=== PATIENT | female | born 1970 | race Caucasian/White ===

== ENCOUNTER → 2025-05-25 | Outpatient (CLI) | payer OTHER, SELFPAY ==
--- OUTSIDE RECORDS SUMMARY | 2025-05-25 07:23 | XMS RPT_ITS | CCD ---
Author Organization [facility] Care Team Providers Care Chemical Engineering Professor Name Role Phone Brandon GASOLINE PUMP MECHANIC.Radha OLVERA Primary Care Provider Radha Taylor Attending Unavailable Brandon GASOLINE PUMP MECHANIC.Radha OLVERA Primary Care Provider RADHA TAYLOR Primary Care Unavailable KEVIN SALAZAR Referring Unavailable RADHA TAYLOR Primary Care Unavailable KEVIN SALAZAR Attending Unavailable BRANDON, RADHA Primary Care Unavailable KEVIN SALAZAR P Attending Unavailable RADHA TAYLOR Primary Care Unavailable RADHA TAYLOR Referring Unavailable RADHA TAYLOR Referring Unavailable RADHA TAYLOR Primary Care Unavailable RADHA TAYLOR Attending Unavailable RADHA TAYLOR Primary Care Unavailable Allergies Allergy Classification Reported Allergen(s) Allergy Type Date of Onset Reaction(s) Facility (12 sources) Seasonal allergy; Translations: [SEASONAL ALLERGIES] Allergy to substance 3 Other: See Comments [facility] Medications Current Medications Medication Drug Class(es) Dates Sig (Normalized) Sig (Original) fluticasone propionate 0.05 mg/actuat metered dose nasal spray (11 sources) Corticosteroid take 1 spray(s) nasal route once daily fluticasone (FLONASE ALLERGY RELIEF) 50 mcg/actuation nasal spray Use 1 [place] in each nostril once daily. Active Comment on above: Use 1 [place] in each nostril once daily. predniSONE 10 mg oral tablet (1 source) Start: 08-07-2023 End: 08-16-2023 predniSONE (DELTASONE) 10 mg tablet Indications: Poison sid dermatitis Take 4 tabs daily for 3 days, then 2 tabs daily for 3 days, then 1 tab daily for 3 days with food. 21 tablet 0 08/07/2023 08/16/2023 Active Comment on above: Take 4 tabs daily fo r 3 days, then 2 tabs daily for 3 days, then 1 tab daily for 3 days with food. Completed/Discontinued Medications Medication Drug Class(es) Dates Sig (Normalized) Sig (Original) Lidocaine (1 source) Antiarrhythmic, Amide Local Anesthetic Start: 05-12-2025 End: 05-12-2025 X (OR/PROCEDURE) PRN, Starting on Thu05/12/25 at 0746, Until Thu05/12/25 at 0746, Intraprocedure Problems Problem Classification Problem Date Documented Da te Episodic/Chronic Allergic reactions (1 source) Contact dermatitis due to poison sid; Translations: [Allergic contact dermatitis due to plants, except food] 08-07-2023 Episodic Immunizations and screening for infectious disease (9 sources) Patient encounter status; Translations: [Encounter for immunization] 08-07-2023 Episodic Nonmalignant breast conditions (3 sources) Large breast; Translations: [Hypertrophy of breast] Onset: 03-06-2025 03-06-2025 Episodic Other screening for suspected conditions (not mental disorders or infectious disease) (20 sources) Mammography abnormal; Translations: [Other abnormal and inconclusive findings on diagnostic imaging of breast] Onset: 02-24-2025 03-06-2025 Episodic Unclassified (1 source) Patient encounter status 02-02-2025 Unclassified (1 source) Consult Onset: 04-24-2025 Results Test Name Value Interpretation Reference Range Facility [facility] 05-16-2025 [facility] Telephone (RADMN) SONJA BELTRAN ([id number]) 1970 F Date Time Provider Department 05/16/25 ZULEIKA MALLORY RADMN During your visit today, we recorded the following information about you: Allergies As of Date: 05/16/2025 Noted Allergy Reaction SEASONAL ALLERGIES 08/07/2023 14 - Other: See Comments Date Reviewed: 04/24/2025 Reviewed by: Diego Fu LPN - Fully Assessed Reason for Visit: Results [95] Prescriptions as of 05/16/2025 - fluticasone (FLONASE ALLERGY RELIEF) 50 mcg/actuation nasal spray Use 1 [place] in each nostril once daily. Problem List As Of Date: 05/16/2025 (None) Encounter Status:Closed by ZULEIKA MALLORY on 05/16/25 Normal [facility] DIAGNOSTIC RTon 05-12-20 [facility] DIAGNOSTIC RT * * *Final Report* * * * * * SEE BOTTOM OF REPORT FOR ADDENDED TEXT * * * DATE OF EXAM: May 12 2025 7:59AM SSW 06 - [facility] DIAGNOSTIC RT / PROCEDURE REASON: Abnormal mammogram * * * * Physician Interpretation * * * * RESULT: Count includes the [facility] [address] [place] [address] - - - - - - - - - - ADDENDED REPORT - - - - - - - - - - 05/16/2025 at 01:53:51 Addendum: The final pathology results of the patient's ultrasound guided core biopsy demonstrate the following: Site 1 - (right breast) Right Breast, 10:00, Ultrasound-Guided Core Biopsy With Ribbon Clip - 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 This is concordant with the imaging findings. RECOMMENDATION Site 1: Six month follow up LEFT mammogram has been recommended to demonstrate stability of the calcifications and asymmetry as reported on 04/12/2025. The breast imaging nurse navigator will review the results and recommendations with the patient. Follow-up with diagnostic imaging is recommended in 6 months. Interpreting Radiologist: Ismael Cordova M.D. Electronically signed on: 05/16/2025 - - - - - - - - - - ORIGINAL REPORT - - - - - - - - - - #[id number] - [facility] US BIOPSY BREAST RT #[id number] - [facility] DIAGNOSTIC RT HISTORY: 54 year old patient presents for ultrasound guided core biopsy of the lesion located in the right breast at 10 o'clock, 9 cm from the nipple. PATIENT CONSENT: A time out was performed immediately prior to procedure start with the radiology team, correctly identifying the patient name, date of , procedure, anatomy (including marking of site and side), patient position, relevant diagnostic and radiology test results, safety precautions, and procedure-specific equipment needs. The procedure, along with the risks (including, but not limited to, infection and bleeding), benefits, and alternatives, was explained to the patient by the performing physician. The patient agreed to undergo the procedure. Medications and allergies were also reviewed. The radiologist and technologist were present throughout the entire procedure. Correlation is made to exams dated: 11/17/2023 (mammogram), 02/24/2025 (mammogram), 04/12/2025 (mammogram) and 04/12/2025 (ultrasound). Site 1: Lesion in the right breast at 10 o'clock, 9 cm from the nipple. Audible Time Out Time: 0739 hrs Procedure Start Time: 0746 hrs Procedure Stop Time: 0752 hrs An ultrasound-guided biopsy using real-time ultrasound was performed for the concerning lesion located in the right breast at 10 o'clock, 9 cm from the nipple. This was described on the previous ultrasound report. The skin was prepped in the usual manner. Local anesthetic was administered. A skin dany was made. The abnormality was approached from the inferior aspect. A 14 gauge biopsy needle was placed adjacent to the abnormality under ultrasound guidance. Once the needle was documented to be in the correct location, 3 samples were obtained using a spring-loaded biopsy device. A ribbon biopsy marker was then placed under sonographic guidance. A skin closure strip and a sterile dressing were applied to the access site. The specimen was sent to the laboratory for pathological analysis. There were no biopsy complications observed. Post-procedure mammogram: The ribbon biopsy marker is in appropriate position. Post-procedure mammogram density: There are scattered areas of fibroglandular density. IMPRESSION: ULTRASOUND GUIDED BIOPSY Site 1: Ultrasound-guided biopsy of the lesion located in the right breast at 10 o'clock, 9 cm from the nipple with placement of a ribbon biopsy marker. Procedure was successful. Waiting for pathology result. An amendment will be issued to this report when pathology results become available. The ribbon biopsy marker is in appropriate position. Interpreting Radiologist: Ismael Cordova M.D. Electronically signed on: 05/12/2025 Certified Professional Ergonomist: SHELLIE Transcribe Date/Time: May 12 2025 7:16A Dictated by: ISMAEL CORDOVA MD This examination was interpreted and the report reviewed and electronically signed by: ISMAEL CORDOVA MD on May 12 2025 8:09AM EST This document has been addended by: ISMAEL CORDOVA MD on May 16 2025 1:53AM EST [id number] N Normal [facility] US BIOPSY BREAST RTon [facility] US BIOPSY BREAST RT * * *Final Repor t* * * * * * SEE BOTTOM OF REPORT FOR ADDENDED TEXT * * * DATE OF EXAM: May 12 2025 7:58AM SSW 0598 - [facility] US BIOPSY BREAST RT / PROCEDURE REASON: Abnormal mammogram * * * * Physician Interpretation * * * * RESULT: Count includes the [facility] [address] [place] [id number] - - - - - - - - - - ADDENDED REPORT - - - - - - - - - - 05/16/2025 at 01:53:51 Addendum: The final pathology results of the patient's ultrasound guided core biopsy demonstrate the following: Site 1 - (right breast) Right Breast, 10:00, Ultrasound-Guided Core Biopsy With Ribbon Clip - 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 This is concordant with the imaging findings. RECOMMENDATION Site 1: Six month follow up LEFT mammogram has been recommended to demonstrate stability of the calcifications and asymmetry as reported on 04/12/2025. The breast imaging nurse navigator will review the results and recommendations with the patient. Follow-up with diagnostic imaging is recommended in 6 months. Interpreting Radiologist: Ismael Cordova M.D. Electronically signed on: 05/16/2025 - - - - - - - - - - ORIGINAL REPORT - - - - - - - - - - #[id number] - [facility] US BIOPSY BREAST RT #[id number] - [facility] DIAGNOSTIC RT HISTORY: 54 year old patient presents for ultrasound guided core biopsy of the lesion located in the right breast at 10 o'clock, 9 cm from the nipple. PATIENT CONSENT: A time out was performed immediately prior to procedure start with the radiology team, correctly identifying the patient name, date of , procedure, anatomy (including marking of site and side), patient position, relevant diagnostic and radiology test results, safety precautions, and procedure-specific equipment needs. The procedure, along with the risks (including, but not limited to, infection and bleeding), benefits, and alternatives, was explained to the patient by the performing physician. The patient agreed to undergo the procedure. Medications and allergies were also reviewed. The radiologist and technologist were present throughout the entire procedure. Correlation is made to exams dated: 11/17/2023 (mammogram), 02/24/2025 (mammogram), 04/12/2025 (mammogram) and 04/12/2025 (ultrasound). Site 1: Lesion in the right breast at 10 o'clock, 9 cm from the nipple. Audible Time Out Time: 0739 hrs Procedure Start Time: 0746 hrs Procedure Stop Time: 0752 hrs An ultrasound-guided biopsy using real-time ultrasound was performed for the concerning lesion located in the right breast at 10 o'clock, 9 cm from the nipple. This was described on the previous ultrasound report. The skin was prepped in the usual manner. Local anesthetic was administered. A skin dany was made. The abnormality was approached from the inferior aspect. A 14 gauge biopsy needle was placed adjacent to the abnormality under ultrasound guidance. Once the needle was documented to be in the correct location, 3 samples were obtained using a spring-loaded biopsy device. A ribbon biopsy marker was then placed under sonographic guidance. A skin closure strip and a sterile dressing were applied to the access site. The specimen was sent to the laboratory for pathological analysis. There were no biopsy complications observed. Post-procedure mammogram: The ribbon biopsy marker is in appropriate position. Post-procedure mammogram density: There are scattered areas of fibroglandular density. IMPRESSION: ULTRASOUND GUIDED BIOPSY Site 1: Ultrasound-guided biopsy of the lesion located in the right breast at 10 o'clock, 9 cm from the nipple with placement of a ribbon biopsy marker. Procedure was successful. Waiting for pathology result. An amendment will be issued to this report when pathology results become available. The ribbon biopsy marker is in appropriate position. Interpreting Radiologist: Ismael Cordova M.D. Electronically signed on: 05/12/2025 Certified Professional Ergonomist: SHELLIE Transcribe Date/Time: May 12 2025 7:15A Dictated by: ISMAEL CORDOVA MD This examination was interpreted and the report reviewed and electronically signed by: ISMAEL CORDOVA MD on May 12 2025 8:09AM EST This document has been addended by: ISMAEL CORDOVA MD on May 16 2025 1:53AM EST [id number] N Normal [facility] MG Breast - right Diagnostic for implanton 05-12-2025 IMPRESSION: ULTRASOUND GUIDED BIOPSY Site 1: Ultrasound-guided biopsy of the lesion located in the right breast at 10 o'clock, 9 cm from the nipple with placement of a ribbon biopsy marker. Procedure was successful. Waiting for pathology result. An amendment will be issued to this report when pathology results become available. The ribbon biopsy marker is in appropriate position. Interpreting Radiologist: Ismael Cordova M.D. Electronically signed on: 05/12/2025 Certified Professional Ergonomist: SHELLIE Transcribe Date/Time: May 12 2025 7:16A Dictated by: ISMAEL CORDOVA MD This examination was interpreted and the report reviewed and electronically signed by: ISMAEL CORDOVA MD on May 12 2025 8:09AM EST DIVISION OF RADIOLOGY * * *Final Report* * * DATE OF EXAM: May 12 2025 7:59AM [facility] 0626 - [facility] DIAGNOSTIC RT / PROCEDURE REASON: Abnormal mammogram * * * * Physician Interpretation * * * * RESULT: Count includes the [facility] [address] [place] [address] #[id number] - [facility] US BIOPSY BREAST RT #[id number] - [facility] DIAGNOSTIC RT HISTORY: 54 year old patient presents for ultrasound guided core biopsy of the lesion located in the right breast at 10 o'clock, 9 cm from the nipple. PATIENT CONSENT: A time out was performed immediately prior to procedure start with the radiology team, correctly identifying the patient name, date of , procedure, anatomy (including marking of site and side), patient position, relevant diagnostic and radiology test results, safety precautions, and procedure-specific equipment needs. The procedure, along with the risks (including, but not limited to, infection and bleeding), benefits, and alternatives, was explained to the patient by the performing physician. The patient agreed to undergo the procedure. Medications and allergies were also reviewed. The radiologist and technologist were present throughout the entire procedure. Correlation is made to exams dated: 11/17/2023 (mammogram), 02/24/2025 (mammogram), 04/12/2025 (mammogram) and 04/12/2025 (ultrasound). Site 1: Lesion in the right breast at 10 o'clock, 9 cm from the nipple. Audible Time Out Time: 0739 hrs Procedure Start Time: 0746 hrs Procedure Stop Time: 0752 hrs An ultrasound-guided biopsy using real-time ultrasound was performed for the concerning lesion located in the right breast at 10 o'clock, 9 cm from the nipple. This was described on the previous ultrasound report. The skin was prepped in the usual manner. Local anesthetic was administered. A skin dany was made. The abnormality was approached from the inferior aspect. A 14 gauge biopsy needle was placed adjacent to the abnormality under ultrasound guidance. Once the needle was documented to be in the correct location, 3 samples were obtained using a spring-loaded biopsy device. A ribbon biopsy marker was then placed under sonographic guidance. A skin closure strip and a sterile dressing were applied to the access site. The specimen was sent to the laboratory for pathological analysis. There were no biopsy complications observed. Post-procedure mammogram: The ribbon biopsy marker is in appropriate position. Post-procedure mammogram density: There are scattered areas of fibroglandular density. DIVISION OF RADIOLOGY Provider, [facility] - 05/12/2025 * * *Final Report* * * DATE OF EXAM: May 12 2025 7:59AM [facility] 0626 - [facility] DIAGNOSTIC RT / PROCEDURE REASON: Abnormal mammogram * * * * Physician Interpretation * * * * RESULT: Count includes the [facility] [address] [place] [address] #[id number] - [facility] US BIOPSY BREAST RT #[id number] - [facility] DIAGNOSTIC RT HISTORY: 54 year old patient presents for ultrasound guided core biopsy of the lesion located in the right breast at 10 o'clock, 9 cm from the nipple. PATIENT CONSENT: A time out was performed immediately prior to procedure start with the radiology team, correctly identifying the patient name, date of , procedure, anatomy (including marking of site and side), patient position, relevant diagnostic and radiology test results, safety precautions, and procedure-specific equipment needs. The procedure, along with the risks (including, but not limited to, infection and bleeding), benefits, and alternatives, was explained to the patient by the performing physician. The patient agreed to undergo the procedure. Medications and allergies were also reviewed. The radiologist and technologist were present throughout the entire procedure. Correlation is made to exams dated: 11/17/2023 (mammogram), 02/24/2025 (mammogram), 04/12/2025 (mammogram) and 04/12/2025 (ultrasound). Site 1: Lesion in the right breast at 10 o'clock, 9 cm from the nipple. Audible Time Out Time: 0739 hrs Procedure Start Time: 0746 hrs Procedure Stop Time: 0752 hrs An ultrasound-guided biopsy using real-time ultrasound was performed for the concerning lesion located in the right breast at 10 o'clock, 9 cm from the nipple. This was described on the previous ultrasound report. The skin was prepped in the usual manner. Local anesthetic was administered. A skin dany was made. The abnormality was approached from the inferior aspect. A 14 gauge biopsy needle was placed adjacent to the abnormality under ultrasound guidance. Once the needle was documented to be in the correct location, 3 samples were obtained using a spring-loaded biopsy device. A ribbon biopsy marker was then placed under sonographic guidance. A skin closure strip and a sterile dressing were applied to the access site. The specimen was sent to the laboratory for pathological analysis. There were no biopsy complications observed. Post-procedure mammogram: The ribbon biopsy marker is in appropriate position. Post-procedure mammogram density: There are scattered areas of fibroglandular density. IMPRESSION IMPRESSION: ULTRASOUND GUIDED BIOPSY Site 1: Ultrasound-guided biopsy of the lesion located in the right breast at 10 o'clock, 9 cm from the nipple with placement of a ribbon biopsy marker. Procedure was successful. Waiting for pathology result. An amendment will be issued to this report when pathology results become available. The ribbon biopsy marker is in appropriate position. Interpreting Radiologist: Ismael Cordova M.D. Electronically signed on: 05/12/2025 Certified Professional Ergonomist: SHELLIE Transcribe Date/Time: May 12 2025 7:16A Dictated by: ISMAEL CORDOVA MD This examination was interpreted and the report reviewed and electronically signed by: ISMAEL CORDOVA MD on May 12 2025 8:09AM EST [facility] Radiology Study observation (narrative) [facility] No Panel InformationOrdered By: Ccf Provider on 05-12-2025 [facility] Pathology biopsy report Tevin (Tiss)on 05-12-[address] [facility] Comment on above: Order Comment: Speci men Type: TISSUE SPECIMENOrdering Facility: [facility] Address: [address] [place] [address] Result Comment: Denny garcia Developed Test (LDT) Disclaimer: Performance characteristics of immunohistochemical, immunofluorescent, and chromogenic in-situ hybridization tests have been determined by the performing laboratory within [facility]'s [facility] Pathology and Laboratory Medicine Department ([facility], [facility], [facility], [facility], [facility], [facility], or [facility]) in a manner consistent with CLIA requirements. One or more of these tests may not have been cleared or approved by the FDA. RT-PLM is regulated under CLIA as qualified to perform high-complexity testing. These tests are used for clinical purposes. These should not be regarded as investigational or for research. Positive and negative controls stain appropriately. Performed By: #### 6 6121-5 ####[facility] LABCLIA [id number] [place] [address] [place] CASE REPORT Normal [facility] Comment on above: Order Comment: Speci men Type: TISSUE SPECIMENOrdering Facility: [facility] Address: [address] [place] [address] Result Comment: Surg ica Pathology Report Case: [id number] Authorizing Provider: Ismael Cordova MD Collected: 05/12/2025 07:48 AM Ordering Location: Mammography Received: 05/12/2025 08:56 AM Pathologist: Etienne Canseco MD Specimen: Breast, Right, Core Biopsy, 1.1cm mass 10:000 9 cmfn Ribbon clip, Rt Breast US Core Bx Performed By: #### 6 6121-5 ####[facility] LABCLIA [id number] [place] [id number] [place] FINAL DIAGNOSIS Normal [facility] Comment on above: Order Comment: Speci men Type: TISSUE SPECIMENOrdering Facility: [facility] Address: [address] [place] [address] Result Comment: Righ t breast, 10:00, ultrasound-guided core biopsy with ribbon clip - Benign breast tissue with pseudoangiomatous stromal hyperplasia (PASH) and clustered microcysts. JOSE ANGEL/jose angel/05/15/25 at 1429 EDT Performed By: #### 6 6121-5 ####[facility] LABCLIA [id number] [place] [id number] [place] FINAL PERFORMING LAB Normal [facility] Comment on above: Order Comment: Speci men Type: TISSUE SPECIMENOrdering Facility: [facility] Address: [address] [place] [address] Result Comment: Diag nostic interpretation performed at: [facility], [address] [place] [address] CLIA# [id number] Experimental Rocket Sled Mechanic: Pawan Turner MD Performed By: #### 6 6121-5 ####[facility] LABCLIA [id number] [place] [id number] [place] GROSS DESCRIPTION Normal [facility] Comment on above: Order Comment: Speci men Type: TISSUE SPECIMENOrdering Facility: [facility] Address: [address] [place] [address] Result Comment: A. B reast, Right, Core Biopsy Received in formalin labeled as right breast are multiple segments of cylindrical tissue aggregating to 1.5 x 0.3 x 0.2 cm, yellow-white and of a soft consistency. The specimen was removed from the patient at 7: 48 on 05/12/2025. On the same day, the specimen was placed in formalin at 7: 52. Totally submitted in formalin in one cassette. VY May 12, 2025 5:01 PM Gross examination performed at [facility], [address] [place] [address] Performed By: #### 6 6121-5 ####[facility] LABCLIA [id number] [place] [address] [place] US Guidance for biopsy of Br neli sher 05-12-2025 IMPRESSION: ULTRASOUND GUIDED BIOPSY Site 1: Ultrasound-guided biopsy of the lesion located in the right breast at 10 o'clock, 9 cm from the nipple with placement of a ribbon biopsy marker. Procedure was successful. Waiting for pathology result. An amendment will be issued to this report when pathology results become available. The ribbon biopsy marker is in appropriate position. Interpreting Radiologist: Ismael Cordova M.D. Electronically signed on: 05/12/2025 Certified Professional Ergonomist: SHELLIE Transcribe Date/Time: May 12 2025 7:15A Dictated by: ISMAEL CORDOVA MD This examination was interpreted and the report reviewed and electronically signed by: ISMAEL CORDOVA MD on May 12 2025 8:09AM [facility] DIVISION OF RADIOLOGY * * *Final Report* * * DATE OF EXAM: May 12 2025 7:58AM [facility] 0598 - [facility] US BIOPSY BREAST RT / PROCEDURE REASON: Abnormal mammogram * * * * Physician Interpretation * * * * RESULT: Count includes the [facility] [address] [place] [address] #[id number] - [facility] US BIOPSY BREAST RT #[id number] - [facility] DIAGNOSTIC RT HISTORY: 54 year old patient presents for ultrasound guided core biopsy of the lesion located in the right breast at 10 o'clock, 9 cm from the nipple. PATIENT CONSENT: A time out was performed immediately prior to procedure start with the radiology team, correctly identifying the patient name, date of , procedure, anatomy (including marking of site and side), patient position, relevant diagnostic and radiology test results, safety precautions, and procedure-specific equipment needs. The procedure, along with the risks (including, but not limited to, infection and bleeding), benefits, and alternatives, was explained to the patient by the performing physician. The patient agreed to undergo the procedure. Medications and allergies were also reviewed. The radiologist and technologist were present throughout the entire procedure. Correlation is made to exams dated: 11/17/2023 (mammogram), 02/24/2025 (mammogram), 04/12/2025 (mammogram) and 04/12/2025 (ultrasound). Site 1: Lesion in the right breast at 10 o'clock, 9 cm from the nipple. Audible Time Out Time: 0739 hrs Procedure Start Time: 0746 hrs Procedure Stop Time: 0752 hrs An ultrasound-guided biopsy using real-time ultrasound was performed for the concerning lesion located in the right breast at 10 o'clock, 9 cm from the nipple. This was described on the previous ultrasound report. The skin was prepped in the usual manner. Local anesthetic was administered. A skin dany was made. The abnormality was approached from the inferior aspect. A 14 gauge biopsy needle was placed adjacent to the abnormality under ultrasound guidance. Once the needle was documented to be in the correct location, 3 samples were obtained using a spring-loaded biopsy device. A ribbon biopsy marker was then placed under sonographic guidance. A skin closure strip and a sterile dressing were applied to the access site. The specimen was sent to the laboratory for pathological analysis. There were no biopsy complications observed. Post-procedure mammogram: The ribbon biopsy marker is in appropriate position. Post-procedure mammogram density: There are scattered areas of fibroglandular density. DIVISION OF RADIOLOGY Provider, [facility] - 05/12/2025 * * *Final Report* * * DATE OF EXAM: May 12 2025 7:58AM [facility] 0598 - [facility] US BIOPSY BREAST RT / PROCEDURE REASON: Abnormal mammogram * * * * Physician Interpretation * * * * RESULT: Count includes the [facility] [address] [place] [address] #[id number] - [facility] US BIOPSY BREAST RT #[id number] - [facility] DIAGNOSTIC RT HISTORY: 54 year old patient presents for ultrasound guided core biopsy of the lesion located in the right breast at 10 o'clock, 9 cm from the nipple. PATIENT CONSENT: A time out was performed immediately prior to procedure start with the radiology team, correctly identifying the patient name, date of , procedure, anatomy (including marking of site and side), patient position, relevant diagnostic and radiology test results, safety precautions, and procedure-specific equipment needs. The procedure, along with the risks (including, but not limited to, infection and bleeding), benefits, and alternatives, was explained to the patient by the performing physician. The patient agreed to undergo the procedure. Medications and allergies were also reviewed. The radiologist and technologist were present throughout the entire procedure. Correlation is made to exams dated: 11/17/2023 (mammogram), 02/24/2025 (mammogram), 04/12/2025 (mammogram) and 04/12/2025 (ultrasound). Site 1: Lesion in the right breast at 10 o'clock, 9 cm from the nipple. Audible Time Out Time: 0739 hrs Procedure Start Time: 0746 hrs Procedure Stop Time: 0752 hrs An ultrasound-guided biopsy using real-time ultrasound was performed for the concerning lesion located in the right breast at 10 o'clock, 9 cm from the nipple. This was described on the previous ultrasound report. The skin was prepped in the usual manner. Local anesthetic was administered. A skin dany was made. The abnormality was approached from the inferior aspect. A 14 gauge biopsy needle was placed adjacent to the abnormality under ultrasound guidance. Once the needle was documented to be in the correct location, 3 samples were obtained using a spring-loaded biopsy device. A ribbon biopsy marker was then placed under sonographic guidance. A skin closure strip and a sterile dressing were applied to the access site. The specimen was sent to the laboratory for pathological analysis. There were no biopsy complications observed. Post-procedure mammogram: The ribbon biopsy marker is in appropriate position. Post-procedure mammogram density: There are scattered areas of fibroglandular density. IMPRESSION IMPRESSION: ULTRASOUND GUIDED BIOPSY Site 1: Ultrasound-guided biopsy of the lesion located in the right breast at 10 o'clock, 9 cm from the nipple with placement of a ribbon biopsy marker. Procedure was successful. Waiting for pathology result. An amendment will be issued to this report when pathology results become available. The ribbon biopsy marker is in appropriate position. Interpreting Radiologist: Ismael Cordova M.D. Electronically signed on: 05/12/2025 Certified Professional Ergonomist: SHELLIE Transcribe Date/Time: May 12 2025 7:15A Dictated by: ISMAEL CORDOVA MD This examination was interpreted and the report reviewed and electronically signed by: ISMAEL CORDOVA MD on May 12 2025 8:09AM [facility] Radiology Study observation (narrative) [facility] 05-02-2025 CNOV Office Visit (GENSWS ) SONJA BELTRAN ([id number]) 1970 F Date Time Provider Department 05/02/25 8:30 AM KEVIN SALAZAR During your visit today, we recorded the following information about you: Kevin Salazar MD 05/02/2025 8:52 AM Signed Unable to see the lesion. I am going to have to get her scheduled with interventional radiology. No charge for today's visit Allergies As of Date: 05/02/2025 Noted Allergy Reaction SEASONAL ALLERGIES 08/07/2023 14 - Other: See Comments Date Reviewed: 04/24/2025 Reviewed by: Diego Fu LPN - Fully Assessed Primary Visit Diagnosis:Abnormal mammogram [R92.8] Order(s):US BREAST BIOPSY RIGHT (POC) SURG USE ONLY [[id number]] Order #: [id number]: 1 US BIOPSY BREAST RIGHT [[id number]] Order #: [id number] FUTURE Prescriptions as of 05/02/2025 - fluticasone (FLONASE ALLERGY RELIEF) 50 mcg/actuation nasal spray Use 1 [place] in each nostril once daily. Problem List As Of Date: 05/02/2025 (None) Encounter Status:Closed by KEVIN SALAZAR on 05/02/25 [facility] CNOVon 04-24-2025 CNOV Office Visit (GENSWS ) DEVINBINGSONJA ([id number]) 1970 F Date Time Provider Department 04/24/25 2:00 PM KEVIN SALAZAR During your visit today, we recorded the following information about you: Temperature Pulse Respiration Blood pressure 97.7 degrees 88/minute 12/minute 160/104 Weight Height 112.9 kg 1.702 m Diego FuCOURTNEY 05/07/2025 12:01 PM Signed REVIEW OF SYSTEMS: General: The patient denies fatigue, denies weight loss, denies weight gain, denies feeling hot, and denies feelings of cold. Eyes: The patient denies glaucoma, denies eye injury/surgery, wears glasses or contacts. Ear/Nose/Throat: The patient denies allergies, denies hayfever, denies ear infections, and denies bloody noses. Cardiovascular: The patient denies chest pain, denies heart disease, denies high blood pressure,denies cardiac stent, denies prior heart attack, denies irregular heart beat, denies high cholesterol, denies poor circulation, denies heart failure, other cardiac issues, denies claudication, denies cold feet, denies peripheral arterial stent. Respiratory: The patient denies tuberculosis, denies pneumonia, denies frequent cough, denies pulmonary embolism, denies shortness of breath, and denies coughing up blood. Gastrointestinal: The patient denies difficulty swallowing, denies acid reflux, denies ulcers, denies vomiting, denies jaundice/hepatitis, denies gallbladder problems, denies black or tarry stools, denies hemorrhoids, denies bleeding from rectum, denies diverticulitis, denies constipation, denies diarrhea, denies loss of stool control, and denies hernias. Kidney/Bladder: The patient denies kidney stones, denies urine infections, and denies bloody urine. Skin: The patient denies a history of skin cancer, denies bleeding/changing moles, and denies a history of skin rash. Neurologic: The patient denies a history of epilepsy/convulsions, denies headaches, denies head/spinal injuries, and denies stroke/TIA. Psychiatric: The patient denies psychiatric medications, denies depression, and denies voices, denies substance abuse. Endocrine: The patient denies thyroid disorders, denies diabetes, and denies hormonal problems. Hematologic: The patient denies a history of bruising, denies bleeding, and denies anemia, denies blood clots. Infections: The patient denies a history of measles and mumps, denies rheumatic fever, and denies sexually transmitted diseases. Musculoskeletal: The patient denies back pain/injury, denies back problems, denies sciatica, denies knee/foot trouble, denies arthritis, or denies gout. When was patient's last Mammogram screening? 04/13/2025 Last Colonoscopy: N/A COURTNEY Kaur Daniel P, MD 05/07/2025 12:01 PM Signed HISTORY AND PHYSICAL - BREAST COMPLAINT Sonja Beltran 1970 REFERRING PHYSICIAN: No ref. provider found CHIEF COMPLAINT: Abnormal mammogram (primary encounter diagnosis) HPI: The patient is a 54 year old female with a complaint of an abnormal mammogram. The patient had a mammogram with ultrasound on 04/12/25 which demonstrated : IMPRESSION: Finding 1: Lesion in the right breast at 10 o'clock, 9 cm from the nipple is suspicious for malignancy. Ultrasound-guided biopsy is recommended. Finding 2: Calcifications in the upper outer quadrant of the left breast, middle depth are probably benign. A follow-up in 6 months is recommended. Finding 3: The asymmetry in the upper outer quadrant of the left breast, posterior depth is probably benign. This likely represents fibroglandular tissue. A follow-up mammogram in 6 months is recommended. The patient denies a history of breast masses. She does perform a self breast exam routinely. She notes no skin changes. She denies nipple discharge. She notes no axillary masses. She notes no family history of breast problems. She notes no significant breast trauma or breast difficulties in the past. PAST MEDICAL HISTORY Diagnosis Date Seasonal allergies Status post bilateral LASIK surgery 1994 PAST SURGICAL HISTORY Procedure Laterality Date KNEE LEFT OP SURGERY Left LAPS TX ECTOPIC PREG W/SALPINGAND/OOPHOREC ISAIAS Had one fallopian tube Current Outpatient Medications Medication Sig Dispense Refill fluticasone (FLONASE ALLERGY RELIEF) 50 mcg/actuation nasal spray Use 1 [place] in each nostril once daily. No current facility-administered medications for this visit. ALLERGIES: Seasonal Allergies PERSONAL HISTORY: Social History Tobacco Use Smoking status: Never Smokeless tobacco: Never Vaping Use Vaping status: Never Used Substance Use Topics Alcohol use: Yes Comment: once a month Drug use: Never FAMILY HISTORY: FAMILY HISTORY Problem Relation Age of Onset Osteoporosis Mother other (spinal stenosis) Mother Melanoma Father other (enlarged prostate) Fat (more content not included)... Normal [facility] DBT Breast - bilateral diagn ostic for implanton 04-12-2025 IMPRESSION: Finding 1: Lesion in the right breast at 10 o'clock, 9 cm from the nipple is suspicious for malignancy. Ultrasound-guided biopsy is recommended. Finding 2: Calcifications in the upper outer quadrant of the left breast, middle depth are probably benign. A follow-up in 6 months is recommended. Finding 3: The asymmetry in the upper outer quadrant of the left breast, posterior depth is probably benign. This likely represents fibroglandular tissue. A follow-up mammogram in 6 months is recommended. BI-RADS Category 4A: Suspicious - Low suspicion for malignancy RISK: Based on the Tyrer-Cuzick (TC) risk assessment model, this patient has a 9.5% lifetime risk of developing breast cancer, meaning they are at average risk for developing breast cancer. However, this is only an estimate based on available history provided on the patient's questionnaire. We encourage all patients to talk with their providers about these results, further recommendations for managing breast health, and appropriate supplemental screening options if the patient has dense breast tissue. Interpreting Radiologist: Kevin Dai M.D. Electronically signed on: 04/12/2025 Certified Professional Ergonomist: SHELLIE Transcribe Date/Time: Apr 12 2025 9:32A Dictated by: KEVIN DAI MD This examination was interpreted and the report reviewed and electronically signed by: KEVIN DAI MD on Apr 12 2025 11:57AM [facility] DIVISION OF RADIOLOGY * * *Final Report* * * DATE OF EXAM: Apr 12 2025 10:15AM [facility] 0627 - YEE KLARISSA MORSE / PROCEDURE REASON: Abnormal mammogram * * * * Physician Interpretation * * * * RESULT: [place] [address] [place] [id number] #[id number] - YEE KLARISSA Pretty ANUSHKA LITO #[id number] - [facility] BREAST LTD RT #[id number] - [facility] BREAST [facility] LT HISTORY: 54 year-old patient seen for diagnostic evaluation of the finding(s) described on prior mammogram in both breasts. Patient states no personal history of breast cancer. The patient has a family history of breast cancer. COMPARISON STUDIES: The present examination has been compared to prior imaging studies dated 11/17/2023 (mammogram) and 02/24/2025 (mammogram). MAMMOGRAM TECHNIQUE: The study was acquired using full field digital technology and interpreted from soft copy. Digital Breast Tomosynthesis (DBT) images were obtained and used to assist in the interpretation of this examination. MAMMOGRAM FINDINGS: There are scattered areas of fibroglandular density. Finding 1: There is a focal asymmetry in the upper outer quadrant of the right breast, middle depth. Finding 2: There are grouped punctate calcifications in the upper outer quadrant of the left breast, middle depth. Finding 3: There is an asymmetry in the upper outer quadrant of the left breast, posterior depth. This likely represents fibroglandular tissue. No correlate is identified on same-day ultrasound. Short-term interval follow-up mammogram recommended. ULTRASOUND TECHNIQUE: Targeted ultrasound of the indicated area was performed. Acosta scale images were saved. ULTRASOUND FINDINGS: Finding 1: Ultrasound demonstrates an oval lesion with lobulated margins in the right breast at 10 o'clock, 9 cm from the nipple. This measures 1.1 x 0.5 x 0.9 cm. Internal echotexture is hypoechoic. Color flow imaging demonstrates vascularity is not present. In the left breast, there is no evidence of any solid mass or other abnormality. DIVISION OF RADIOLOGY Provider, [facility] - 04/12/2025 * * *Final Report* * * DATE OF EXAM: Apr 12 2025 10:15AM W 0627 - [facility] KLARISSA Pretty ANUSHKA LITO / PROCEDURE REASON: Abnormal mammogram * * * * Physician Interpretation * * * * RESULT: [facility] [address] [id number] #[id number] - [facility] KLARISSA REVELES LITO #[id number] - [facility] BREAST LTD RT #[id number] - [facility] BREAST [facility] LT HISTORY: 54 year-old patient seen for diagnostic evaluation of the finding(s) described on prior mammogram in both breasts. Patient states no personal history of breast cancer. The patient has a family history of breast cancer. COMPARISON STUDIES: The present examination has been compared to prior imaging studies dated 11/17/2023 (mammogram) and 02/24/2025 (mammogram). MAMMOGRAM TECHNIQUE: The study was acquired using full field digital technology and interpreted from soft copy. Digital Breast Tomosynthesis (DBT) images were obtained and used to assist in the interpretation of this examination. MAMMOGRAM FINDINGS: There are scattered areas of fibroglandular density. Finding 1: There is a focal asymmetry in the upper outer quadrant of the right breast, middle depth. Finding 2: There are grouped punctate calcifications in the upper outer quadrant of the left breast, middle depth. Finding 3: There is an asymmetry in the upper outer quadrant of the left breast, posterior depth. This likely represents fibroglandular tissue. No correlate is identified on same-day ultrasound. Short-term interval follow-up mammogram recommended. ULTRASOUND TECHNIQUE: Targeted ultrasound of the indicated area was performed. Acosta scale images were saved. ULTRASOUND FINDINGS: Finding 1: Ultrasound demonstrates an oval lesion with lobulated margins in the right breast at 10 o'clock, 9 cm from the nipple. This measures 1.1 x 0.5 x 0.9 cm. Internal echotexture is hypoechoic. Color flow imaging demonstrates vascularity is not present. In the left breast, there is no evidence of any solid mass or other abnormality. IMPRESSION IMPRESSION: Finding 1: Lesion in the right breast at 10 o'clock, 9 cm from the nipple is suspicious for malignancy. Ultrasound-guided biopsy is recommended. Finding 2: Calcifications in the upper outer quadrant of the left breast, middle depth are probably benign. A follow-up in 6 months is recommended. Finding 3: The asymmetry in the upper outer quadrant of the left breast, posterior depth is probably benign. This likely represents fibroglandular tissue. A follow-up mammogram in 6 months is recommended. BI-RADS Category 4A: Suspicious - Low suspicion for malignancy RISK: Based on the Tyrer-Cuzick (TC) risk assessment model, this patient has a 9.5% lifetime risk of developing breast cancer, meaning they are at average risk for developing breast cancer. However, this is only an estimate based on available history provided on the patient's questionnaire. We encourage all patients to talk with their providers about these results, further recommendations for managing breast health, and appropriate supplemental screening options if the patient has dense breast tissue. Interpreting Radiologist: Kevin Dai M.D. Electronically signed on: 04/12/2025 Certified Professional Ergonomist: SHELLIE Transcribe Date/Time: Apr 12 2025 9:32A Dictated by: KEVIN DAI MD This examination was interpreted and the report reviewed and electronically signed by: KEVIN DAI MD on Apr 12 2025 11:57AM EST [facility] DIAG W ANUSHKA BILon 2024 YEE DIAG W ANUSHKA LITO * * *Final Report* * * DATE OF EXAM: Apr 12 2025 10:15AM [facility] 0627 - [facility] DIAG W ANUSHKA LITO / PROCEDURE REASON: Abnormal mammogram * * * * Physician Interpretation * * * * RESULT: [place] [address] #[id number] - [facility] DIAG W ANUSHKA LITO #[id number] - [facility] BREAST LTD RT #[id number] - [facility] BREAST LTD LT HISTORY: 54 year-old patient seen for diagnostic evaluation of the finding(s) described on prior mammogram in both breasts. Patient states no personal history of breast cancer. The patient has a family history of breast cancer. COMPARISON STUDIES: The present examination has been compared to prior imaging studies dated 11/17/2023 (mammogram) and 02/24/2025 (mammogram). MAMMOGRAM TECHNIQUE: The study was acquired using full field digital technology and interpreted from soft copy. Digital Breast Tomosynthesis (DBT) images were obtained and used to assist in the interpretation of this examination. MAMMOGRAM FINDINGS: There are scattered areas of fibroglandular density. Finding 1: There is a focal asymmetry in the upper outer quadrant of the right breast, middle depth. Finding 2: There are grouped punctate calcifications in the upper outer quadrant of the left breast, middle depth. Finding 3: There is an asymmetry in the upper outer quadrant of the left breast, posterior depth. This likely represents fibroglandular tissue. No correlate is identified on same-day ultrasound. Short-term interval follow-up mammogram recommended. ULTRASOUND TECHNIQUE: Targeted ultrasound of the indicated area was performed. Acosta scale images were saved. ULTRASOUND FINDINGS: Finding 1: Ultrasound demonstrates an oval lesion with lobulated margins in the right breast at 10 o'clock, 9 cm from the nipple. This measures 1.1 x 0.5 x 0.9 cm. Internal echotexture is hypoechoic. Color flow imaging demonstrates vascularity is not present. In the left breast, there is no evidence of any solid mass or other abnormality. IMPRESSION: Finding 1: Lesion in the right breast at 10 o'clock, 9 cm from the nipple is suspicious for malignancy. Ultrasound-guided biopsy is recommended. Finding 2: Calcifications in the upper outer quadrant of the left breast, middle depth are probably benign. A follow-up in 6 months is recommended. Finding 3: The asymmetry in the upper outer quadrant of the left breast, posterior depth is probably benign. This likely represents fibroglandular tissue. A follow-up mammogram in 6 months is recommended. BI-RADS Category 4A: Suspicious - Low suspicion for malignancy RISK: Based on the Tyrer-Cuzick (TC) risk assessment model, this patient has a 9.5% lifetime risk of developing breast cancer, meaning they are at average risk for developing breast cancer. However, this is only an estimate based on available history provided on the patient's questionnaire. We encourage all patients to talk with their providers about these results, further recommendations for managing breast health, and appropriate supplemental screening options if the patient has dense breast tissue. Interpreting Radiologist: Kevin Dai M.D. Electronically signed on: 04/12/2025 Certified Professional Ergonomist: SHELLIE Transcribe Date/Time: Apr 12 2025 9:32A Dictated by: KEVIN DAI MD This examination was interpreted and the report reviewed and electronically signed by: KEVIN DAI MD on Apr 12 2025 11:57AM EST [id number] Normal [facility] US BREAST LTD LTon 04-12 [facility] US BREAST LTD LT * * *Final Report* * * DATE OF EXAM: Apr 12 2025 11:04AM [facility] [id number] - [facility] US BREAST LTD LT / PROCEDURE REASON: Abnormal mammogram * * * * Physician Interpretation * * * * [place] [address] #[id number] - [facility] KLARISSA MORSE #[id number] - [facility] [email or web address] BREAST LTD RT #[id number] - [facility] [email or web address] BREAST LTD LT HISTORY: 54 year-old patient seen for diagnostic evaluation of the finding(s) described on prior mammogram in both breasts. Patient states no personal history of breast cancer. The patient has a family history of breast cancer. COMPARISON STUDIES: The present examination has been compared to prior imaging studies dated 11/17/2023 (mammogram) and 02/24/2025 (mammogram). MAMMOGRAM TECHNIQUE: The study was acquired using full field digital technology and interpreted from soft copy. Digital Breast Tomosynthesis (DBT) images were obtained and used to assist in the interpretation of this examination. MAMMOGRAM FINDINGS: There are scattered areas of fibroglandular density. Finding 1: There is a focal asymmetry in the upper outer quadrant of the right breast, middle depth. Finding 2: There are grouped punctate calcifications in the upper outer quadrant of the left breast, middle depth. Finding 3: There is an asymmetry in the upper outer quadrant of the left breast, posterior depth. This likely represents fibroglandular tissue. No correlate is identified on same-day ultrasound. Short-term interval follow-up mammogram recommended. ULTRASOUND TECHNIQUE: Targeted ultrasound of the indicated area was performed. Acosta scale images were saved. ULTRASOUND FINDINGS: Finding 1: Ultrasound demonstrates an oval lesion with lobulated margins in the right breast at 10 o'clock, 9 cm from the nipple. This measures 1.1 x 0.5 x 0.9 cm. Internal echotexture is hypoechoic. Color flow imaging demonstrates vascularity is not present. In the left breast, there is no evidence of any solid mass or other abnormality. IMPRESSION: Finding 1: Lesion in the right breast at 10 o'clock, 9 cm from the nipple is suspicious for malignancy. Ultrasound-guided biopsy is recommended. Finding 2: Calcifications in the upper outer quadrant of the left breast, middle depth are probably benign. A follow-up in 6 months is recommended. Finding 3: The asymmetry in the upper outer quadrant of the left breast, posterior depth is probably benign. This likely represents fibroglandular tissue. A follow-up mammogram in 6 months is recommended. BI-RADS Category 4A: Suspicious - Low suspicion for malignancy RISK: Based on the Tyrer-Cuzick (TC) risk assessment model, this patient has a 9.5% lifetime risk of developing breast cancer, meaning they are at average risk for developing breast cancer. However, this is only an estimate based on available history provided on the patient's questionnaire. We encourage all patients to talk with their providers about these results, further recommendations for managing breast health, and appropriate supplemental screening options if the patient has dense breast tissue. Interpreting Radiologist: Kevin Dai M.D. Electronically signed on: 04/12/2025 Certified Professional Ergonomist: SHELLIE Transcribe Date/Time: Apr 12 2025 10:59A Dictated by : KEVIN DAI MD This examination was interpreted and the report reviewed and electronically signed by: KEVIN DAI MD on Apr 12 2025 11:57AM EST [id number] N Normal [facility] US BREAST LTD RTon 04-12 [facility] [email or web address] BREAST LTD RT * * *Final Report* * * DATE OF EXAM: Apr 12 2025 10:58AM U 0594 - [facility] [email or web address] BREAST LTD RT / PROCEDURE REASON: Abnormal mammogram * * * * Physician Interpretation * * * * [place] [address] #[id number] - [facility] JUANG W ANUSHKA LITO #[id number] - [facility] US BREAST LTD RT #[id number] - [facility] [email or web address] BREAST LTD LT HISTORY: 54 year-old patient seen for diagnostic evaluation of the finding(s) described on prior mammogram in both breasts. Patient states no personal history of breast cancer. The patient has a family history of breast cancer. COMPARISON STUDIES: The present examination has been compared to prior imaging studies dated 11/17/2023 (mammogram) and 02/24/2025 (mammogram). MAMMOGRAM TECHNIQUE: The study was acquired using full field digital technology and interpreted from soft copy. Digital Breast Tomosynthesis (DBT) images were obtained and used to assist in the interpretation of this examination. MAMMOGRAM FINDINGS: There are scattered areas of fibroglandular density. Finding 1: There is a focal asymmetry in the upper outer quadrant of the right breast, middle depth. Finding 2: There are grouped punctate calcifications in the upper outer quadrant of the left breast, middle depth. Finding 3: There is an asymmetry in the upper outer quadrant of the left breast, posterior depth. This likely represents fibroglandular tissue. No correlate is identified on same-day ultrasound. Short-term interval follow-up mammogram recommended. ULTRASOUND TECHNIQUE: Targeted ultrasound of the indicated area was performed. Acosta scale images were saved. ULTRASOUND FINDINGS: Finding 1: Ultrasound demonstrates an oval lesion with lobulated margins in the right breast at 10 o'clock, 9 cm from the nipple. This measures 1.1 x 0.5 x 0.9 cm. Internal echotexture is hypoechoic. Color flow imaging demonstrates vascularity is not present. In the left breast, there is no evidence of any solid mass or other abnormality. IMPRESSION: Finding 1: Lesion in the right breast at 10 o'clock, 9 cm from the nipple is suspicious for malignancy. Ultrasound-guided biopsy is recommended. Finding 2: Calcifications in the upper outer quadrant of the left breast, middle depth are probably benign. A follow-up in 6 months is recommended. Finding 3: The asymmetry in the upper outer quadrant of the left breast, posterior depth is probably benign. This likely represents fibroglandular tissue. A follow-up mammogram in 6 months is recommended. BI-RADS Category 4A: Suspicious - Low suspicion for malignancy RISK: Based on the Tyrer-Cuzick (TC) risk assessment model, this patient has a 9.5% lifetime risk of developing breast cancer, meaning they are at average risk for developing breast cancer. However, this is only an estimate based on available history provided on the patient's questionnaire. We encourage all patients to talk with their providers about these results, further recommendations for managing breast health, and appropriate supplemental screening options if the patient has dense breast tissue. Interpreting Radiologist: Kevin Dai M.D. Electronically signed on: 04/12/2025 Certified Professional Ergonomist: SHELLIE Transcribe Date/Time: Apr 12 2025 10:52A Dictated by : KEVIN DAI MD This examination was interpreted and the report reviewed and electronically signed by: KEVIN DAI MD on Apr 12 2025 11:57AM EST [id number] N Normal [facility] No Panel InformationOrdered By: [facility] Provider on 04-12-2025 [facility] No Panel Informationon 04-12 Radiology Study observation (narrative) Rowan leon [facility] US Breast - left limitedon 0 04-12-2025 IMPRESSION: Finding 1: Lesion in the right breast at 10 o'clock, 9 cm from the nipple is suspicious for malignancy. Ultrasound-guided biopsy is recommended. Finding 2: Calcifications in the upper outer quadrant of the left breast, middle depth are probably benign. A follow-up in 6 months is recommended. Finding 3: The asymmetry in the upper outer quadrant of the left breast, posterior depth is probably benign. This likely represents fibroglandular tissue. A follow-up mammogram in 6 months is recommended. BI-RADS Category 4A: Suspicious - Low suspicion for malignancy RISK: Based on the Tyrer-Cuzick (TC) risk assessment model, this patient has a 9.5% lifetime risk of developing breast cancer, meaning they are at average risk for developing breast cancer. However, this is only an estimate based on available history provided on the patient's questionnaire. We encourage all patients to talk with their providers about these results, further recommendations for managing breast health, and appropriate supplemental screening options if the patient has dense breast tissue. Interpreting Radiologist: Kevin Dai M.D. Electronically signed on: 04/12/2025 Certified Professional Ergonomist: SHELLIE Transcribe Date/Time: Apr 12 2025 10:59A Dictated by : KEVIN DAI MD This examination was interpreted and the report reviewed and electronically signed by: KEVIN DAI MD on Apr 12 2025 11:57AM EST DIVISION OF RADIOLOGY * * *Final Report* * * DATE OF EXAM: Apr 12 2025 11:04AM [facility] 0593 - [facility] [email or web address] BREAST LTD LT / PROCEDURE REASON: Abnormal mammogram * * * * Physician Interpretation * * * * [place] [address] #[id number] - [facility] DIAG W ANUSHKA LITO #[id number] - [facility] US BREAST LTD RT #[id number] - [facility] US BREAST LTD LT HISTORY: 54 year-old patient seen for diagnostic evaluation of the finding(s) described on prior mammogram in both breasts. Patient states no personal history of breast cancer. The patient has a family history of breast cancer. COMPARISON STUDIES: The present examination has been compared to prior imaging studies dated 11/17/2023 (mammogram) and 02/24/2025 (mammogram). MAMMOGRAM TECHNIQUE: The study was acquired using full field digital technology and interpreted from soft copy. Digital Breast Tomosynthesis (DBT) images were obtained and used to assist in the interpretation of this examination. MAMMOGRAM FINDINGS: There are scattered areas of fibroglandular density. Finding 1: There is a focal asymmetry in the upper outer quadrant of the right breast, middle depth. Finding 2: There are grouped punctate calcifications in the upper outer quadrant of the left breast, middle depth. Finding 3: There is an asymmetry in the upper outer quadrant of the left breast, posterior depth. This likely represents fibroglandular tissue. No correlate is identified on same-day ultrasound. Short-term interval follow-up mammogram recommended. ULTRASOUND TECHNIQUE: Targeted ultrasound of the indicated area was performed. Acosta scale images were saved. ULTRASOUND FINDINGS: Finding 1: Ultrasound demonstrates an oval lesion with lobulated margins in the right breast at 10 o'clock, 9 cm from the nipple. This measures 1.1 x 0.5 x 0.9 cm. Internal echotexture is hypoechoic. Color flow imaging demonstrates vascularity is not present. In the left breast, there is no evidence of any solid mass or other abnormality. DIVISION OF RADIOLOGY Provider, [facility] - 04/12/2025 * * *Final Report* * * DATE OF EXAM: Apr 12 2025 11:04AM WRU 0593 - [facility] BREAST [employer] LT / PROCEDURE REASON: Abnormal mammogram * * * * Physician Interpretation * * * * [place] [address] #[id number] - [facility] KLARISSA W ANUSHKA LITO #[id number] - [facility] [email or web address] BREAST LTD RT #[id number] - [facility] [email or web address] BREAST LTD LT HISTORY: 54 year-old patient seen for diagnostic evaluation of the finding(s) described on prior mammogram in both breasts. Patient states no personal history of breast cancer. The patient has a family history of breast cancer. COMPARISON STUDIES: The present examination has been compared to prior imaging studies dated 11/17/2023 (mammogram) and 02/24/2025 (mammogram). MAMMOGRAM TECHNIQUE: The study was acquired using full field digital technology and interpreted from soft copy. Digital Breast Tomosynthesis (DBT) images were obtained and used to assist in the interpretation of this examination. MAMMOGRAM FINDINGS: There are scattered areas of fibroglandular density. Finding 1: There is a focal asymmetry in the upper outer quadrant of the right breast, middle depth. Finding 2: There are grouped punctate calcifications in the upper outer quadrant of the left breast, middle depth. Finding 3: There is an asymmetry in the upper outer quadrant of the left breast, posterior depth. This likely represents fibroglandular tissue. No correlate is identified on same-day ultrasound. Short-term interval follow-up mammogram recommended. ULTRASOUND TECHNIQUE: Targeted ultrasound of the indicated area was performed. Aocsta scale images were saved. ULTRASOUND FINDINGS: Finding 1: Ultrasound demonstrates an oval lesion with lobulated margins in the right breast at 10 o'clock, 9 cm from the nipple. This measures 1.1 x 0.5 x 0.9 cm. Internal echotexture is hypoechoic. Color flow imaging demonstrates vascularity is not present. In the left breast, there is no evidence of any solid mass or other abnormality. IMPRESSION IMPRESSION: Finding 1: Lesion in the right breast at 10 o'clock, 9 cm from the nipple is suspicious for malignancy. Ultrasound-guided biopsy is recommended. Finding 2: Calcifications in the upper outer quadrant of the left breast, middle depth are probably benign. A follow-up in 6 months is recommended. Finding 3: The asymmetry in the upper outer quadrant of the left breast, posterior depth is probably benign. This likely represents fibroglandular tissue. A follow-up mammogram in 6 months is recommended. BI-RADS Category 4A: Suspicious - Low suspicion for malignancy RISK: Based on the Tyrer-Cuzick (TC) risk assessment model, this patient has a 9.5% lifetime risk of developing breast cancer, meaning they are at average risk for developing breast cancer. However, this is only an estimate based on available history provided on the patient's questionnaire. We encourage all patients to talk with their providers about these results, further recommendations for managing breast health, and appropriate supplemental screening options if the patient has dense breast tissue. Interpreting Radiologist: Kevin Dai M.D. Electronically signed on: 04/12/2025 Certified Professional Ergonomist: SHELLIE Transcribe Date/Time: Apr 12 2025 10:59A Dictated by : KEVIN DAI MD This examination was interpreted and the report reviewed and electronically signed by: KEVIN DAI MD on Apr 12 2025 11:57AM EST [facility] Breast - right limitedon 04-12-2025 IMPRESSION: Finding 1: Lesion in the right breast at 10 o'clock, 9 cm from the nipple is suspicious for malignancy. Ultrasound-guided biopsy is recommended. Finding 2: Calcifications in the upper outer quadrant of the left breast, middle depth are probably benign. A follow-up in 6 months is recommended. Finding 3: The asymmetry in the upper outer quadrant of the left breast, posterior depth is probably benign. This likely represents fibroglandular tissue. A follow-up mammogram in 6 months is recommended. BI-RADS Category 4A: Suspicious - Low suspicion for malignancy RISK: Based on the Tyrer-Cuzick (TC) risk assessment model, this patient has a 9.5% lifetime risk of developing breast cancer, meaning they are at average risk for developing breast cancer. However, this is only an estimate based on available history provided on the patient's questionnaire. We encourage all patients to talk with their providers about these results, further recommendations for managing breast health, and appropriate supplemental screening options if the patient has dense breast tissue. Interpreting Radiologist: Kevin Dai M.D. Electronically signed on: 04/12/2025 Certified Professional Ergonomist: SHELLIE Transcribe Date/Time: Apr 12 2025 10:52A Dictated by : KEVIN DAI MD This examination was interpreted and the report reviewed and electronically signed by: KEVIN DAI MD on Apr 12 2025 11:57AM [facility] DIVISION OF RADIOLOGY * * *Final Report* * * DATE OF EXAM: Apr 12 2025 10:58AM [facility] 0594 - [facility] US BREAST LTD RT / PROCEDURE REASON: Abnormal mammogram * * * * Physician Interpretation * * * * [place] [id number] #[id number] - [facility] KLARISSA REVELES LITO #[id number] - [facility] [email or web address] BREAST [employer] RT #[id number] - [facility] [employer] BREAST [employer] LT HISTORY: 54 year-old patient seen for diagnostic evaluation of the finding(s) described on prior mammogram in both breasts. Patient states no personal history of breast cancer. The patient has a family history of breast cancer. COMPARISON STUDIES: The present examination has been compared to prior imaging studies dated 11/17/2023 (mammogram) and 02/24/2025 (mammogram). MAMMOGRAM TECHNIQUE: The study was acquired using full field digital technology and interpreted from soft copy. Digital Breast Tomosynthesis (DBT) images were obtained and used to assist in the interpretation of this examination. MAMMOGRAM FINDINGS: There are scattered areas of fibroglandular density. Finding 1: There is a focal asymmetry in the upper outer quadrant of the right breast, middle depth. Finding 2: There are grouped punctate calcifications in the upper outer quadrant of the left breast, middle depth. Finding 3: There is an asymmetry in the upper outer quadrant of the left breast, posterior depth. This likely represents fibroglandular tissue. No correlate is identified on same-day ultrasound. Short-term interval follow-up mammogram recommended. ULTRASOUND TECHNIQUE: Targeted ultrasound of the indicated area was performed. Acosta scale images were saved. ULTRASOUND FINDINGS: Finding 1: Ultrasound demonstrates an oval lesion with lobulated margins in the right breast at 10 o'clock, 9 cm from the nipple. This measures 1.1 x 0.5 x 0.9 cm. Internal echotexture is hypoechoic. Color flow imaging demonstrates vascularity is not present. In the left breast, there is no evidence of any solid mass or other abnormality. DIVISION OF RADIOLOGY Provider, [facility] - 04/12/2025 * * *Final Report* * * DATE OF EXAM: Apr 12 2025 10:58AM WRU 0594 - [facility] [email or web address] BREAST [employer] RT / PROCEDURE REASON: Abnormal mammogram * * * * Physician Interpretation * * * * [facility] [address] [place] [address] #[id number] - [facility] KLARISSA REVELES LITO #[id number] - [facility] BREAST LTD RT #[id number] - [facility] BREAST [facility] LT HISTORY: 54 year-old patient seen for diagnostic evaluation of the finding(s) described on prior mammogram in both breasts. Patient states no personal history of breast cancer. The patient has a family history of breast cancer. COMPARISON STUDIES: The present examination has been compared to prior imaging studies dated 11/17/2023 (mammogram) and 02/24/2025 (mammogram). MAMMOGRAM TECHNIQUE: The study was acquired using full field digital technology and interpreted from soft copy. Digital Breast Tomosynthesis (DBT) images were obtained and used to assist in the interpretation of this examination. MAMMOGRAM FINDINGS: There are scattered areas of fibroglandular density. Finding 1: There is a focal asymmetry in the upper outer quadrant of the right breast, middle depth. Finding 2: There are grouped punctate calcifications in the upper outer quadrant of the left breast, middle depth. Finding 3: There is an asymmetry in the upper outer quadrant of the left breast, posterior depth. This likely represents fibroglandular tissue. No correlate is identified on same-day ultrasound. Short-term interval follow-up mammogram recommended. ULTRASOUND TECHNIQUE: Targeted ultrasound of the indicated area was performed. Acosta scale images were saved. ULTRASOUND FINDINGS: Finding 1: Ultrasound demonstrates an oval lesion with lobulated margins in the right breast at 10 o'clock, 9 cm from the nipple. This measures 1.1 x 0.5 x 0.9 cm. Internal echotexture is hypoechoic. Color flow imaging demonstrates vascularity is not present. In the left breast, there is no evidence of any solid mass or other abnormality. IMPRESSION IMPRESSION: Finding 1: Lesion in the right breast at 10 o'clock, 9 cm from the nipple is suspicious for malignancy. Ultrasound-guided biopsy is recommended. Finding 2: Calcifications in the upper outer quadrant of the left breast, middle depth are probably benign. A follow-up in 6 months is recommended. Finding 3: The asymmetry in the upper outer quadrant of the left breast, posterior depth is probably benign. This likely represents fibroglandular tissue. A follow-up mammogram in 6 months is recommended. BI-RADS Category 4A: Suspicious - Low suspicion for malignancy RISK: Based on the Tyrer-Cuzick (TC) risk assessment model, this patient has a 9.5% lifetime risk of developing breast cancer, meaning they are at average risk for developing breast cancer. However, this is only an estimate based on available history provided on the patient's questionnaire. We encourage all patients to talk with their providers about these results, further recommendations for managing breast health, and appropriate supplemental screening options if the patient has dense breast tissue. Interpreting Radiologist: Kevin Dai M.D. Electronically signed on: 04/12/2025 Certified Professional Ergonomist: SHELLIE Transcribe Date/Time: Apr 12 2025 10:52A Dictated by : KEVIN DAI MD This examination was interpreted and the report reviewed and electronically signed by: KEVIN DAI MD on Apr 12 2025 11:57AM EST [facility] CNOVon 03-06-2025 CNOV Office Visit (FAMPWS ) SONJA BELTRAN ([id number]) 1970 F Date Time Provider Department 03/06/25 3:40 PM RADHA TAYLOR During your visit today, we recorded the following information about you: Pulse Blood pressure Weight Height 76/minute 138/90 111.1 kg 1.727 m Radha Taylor APRN.BOTTOM BRUSHER 03/06/2025 3:36 PM Signed Chief Complaint Patient presents with: Results: Discuss Mammogram HPI Sonja Beltran is a 54 year old female who presents here today for Above Complaints. Patient presents for follow up to mammogram. Past medical history, appointments, medications, allergies reviewed. Previous Medical History No past medical history on file. Previous Surgical History PAST SURGICAL HISTORY Procedure Laterality Date KNEE LEFT OP SURGERY Left LAPS TX ECTOPIC PREG W/SALPINGAND/OOPHOREC ISAIAS Had one fallopian tube Family History FAMILY HISTORY Problem Relation Age of Onset Osteoporosis Mother other (spinal stenosis) Mother Melanoma Father other (enlarged prostate) Father Breast Cancer Sister Macular Degen Maternal Grandmother other (myasthenia gravis) Maternal Grandmother Stroke Maternal Grandfather Breast Cancer Paternal Grandmother Patient Allergies ALLERGIES Allergen Reactions Seasonal Allergies Other: See Comments Current Medications Current Outpatient Medications on File Prior to Visit Medication Sig fluticasone (FLONASE ALLERGY RELIEF) 50 mcg/actuation nasal spray Use 1 [place] in each nostril once daily. No current facility-administered medications on file prior to visit. Social History Social History Tobacco Use Smoking status: Never Smokeless tobacco: Never Substance Use Topics Alcohol use: Yes Comment: once a month Drug use: Never Review of Symptoms REVIEW OF SYSTEMS SEE HPI EXAM: BP 138/90 Pulse 76 Ht 172.7 cm (5' 8) Wt 111.1 kg (245 lb) BMI 37.25 kg/m? General Appearance: Well appearing, alert, in no acute distress, well-hydrated, well nourished. Health Maintenance List Depression Screening Never done Anxiety Screening Never done DTaP,Tdap,Td Vaccine(1 - Tdap) Never done Pneumococcal Vaccine: 50+(1 of 1 - PCV) Never done Covid-19 Vaccine() due on 07/17/2024 Cervical Cancer Screening due on 01/12/2026 Mammogram Screening due on 02/24/2026 Colorectal Cancer Screening due on 07/17/2026 Diabetes Screening due on 08/07/2026 Lipid Screening due on 08/07/2028 Influenza Vaccine Completed Shingrix Vaccine Completed Hepatitis B Vaccine Discontinued Hepatitis C Screening Discontinued HIV Screening Discontinued ASSESSMENT/PLAN: 1. Abnormal mammogram - ICD9: 793.80, ICD10: R92.8 (primary diagnosis) - [facility] BILATERAL - US BREAST LTD LEFT 2. Screening for diabetes mellitus - ICD9: V77.1, ICD10: Z13.1 - HEMOGLOBIN A1C 3. Encounter for lipid screening for cardiovascular disease - ICD9: V77.91, V81.2, ICD10: Z13.220, Z13.6 - LIPID PANEL, NONFASTING 4. Wellness examination - ICD9: V70.0, ICD10: Z00.00 - Counseled on healthy diet and regular exercise - Discussed need and benefit for weight loss. BMI 37.25 kg/(m2) - Follow up for annual exam in one year - COMPLETE BLOOD COUNT AND DIFFERENTIAL - COMPREHENSIVE METABOLIC PANEL 5. Large breasts - ICD9: 611.1, ICD10: N62 - CONSULT TO PLASTIC SURGERY Radha Taylor APRN.BOTTOM BRUSHER Allergies As of Date: 03/06/2025 Noted Allergy Reaction SEASONAL ALLERGIES 08/07/2023 14 - Other: See Comments Date Reviewed: 03/06/2025 Reviewed by: Keila Toledo MA - Fully Assessed Reason for Visit: Results [95] Cmt: Discuss Mammogram Primary Visit Diagnosis:Abnormal mammogram [R92.8] Other Visit Diagnoses:Screening for diabetes mellitus [Z13.1] Encounter for lipid screening for cardiovascular disease [Z13.220, Z13.6] Wellness examination [Z00.00] Large breasts [N62] Order(s):YEE DIAGNOSTIC BILATERAL [[id number]] Order #: [id number] FUTURE US BREAST LTD LEFT [8522760] Order #: [id number] FUTURE COMPLETE BLOOD COUNT AND DIFFERENTIAL [SQCBCDIF] Order #: [id number] FUTURE COMPREHENSIVE METABOLIC PANEL [SQCMP] Order #: [id number] FUTURE LIPID PANEL, NONFASTING [SQLIPNF] Order #: [id number] FUTURE HEMOGLOBIN A1C [CBIUK5T] Order #: [id number] FUTURE CONSULT TO PLASTIC SURGERY [9033] Order #: [id number]: 1 FUTURE Prescriptions as of 03/06/2025 - fluticasone (FLONASE ALLERGY RELIEF) 50 mcg/actuation nasal spray Use 1 [place] in each nostril once daily. Problem List As Of Date: 03/06/2025 (None) Disposition: Return in about 4 weeks (around 04/03/2025) for annual physical-40min. Follow-up and Disposition History for Encounter Date Provider Department Center 03/06/2025 [id number] TAYLOR [facility] Encounter Status:Closed by RADHA TAYLOR on 03/06/[address] [facility] YEE SCREENING W TOMOon 02-24 YEE SCREENING W ANUSHKA * * *Final Report* * * DATE OF EXAM: Feb 24 2025 7:22AM WRW [id number] - YEE SCREENING W ANUSHKA / PROCEDURE REASON: Encounter for screening mammogram for breast cancer * * * * Physician Interpretation * * * * RESULT: [address] [address] [place] [address] #[id number] - YEE SCREENING W ANUSHKA HISTORY: 54 year-old patient seen for screening. Patient is asymptomatic in both breasts. Patient states no personal history of breast cancer. The patient has a family history of breast cancer. COMPARISON STUDIES: The present examination has been compared to a prior imaging study dated 11/17/2023 (mammogram). MAMMOGRAM TECHNIQUE: The study was acquired using full field digital technology and interpreted from soft copy. Digital Breast Tomosynthesis (DBT) images were obtained and used to assist in the interpretation of this examination. MAMMOGRAM FINDINGS: There are scattered areas of fibroglandular density. Finding 1: There is an asymmetry seen only in the CC view in the lateral right breast. Finding 2: There is a focal asymmetry in the upper outer quadrant of the left breast, posterior depth. Finding 3: There are multiple groups of calcifications in the upper outer quadrant of the left breast. IMPRESSION: Finding 1: The asymmetry in the lateral right breast requires additional evaluation. Diagnostic mammogram is recommended. Finding 2: The focal asymmetry in the upper outer quadrant of the left breast, posterior depth requires additional evaluation. Diagnostic mammogram is recommended. Finding 3: Calcifications in the upper outer quadrant of the left breast require additional evaluation. Diagnostic mammogram is recommended. BI-RADS Category 0: Incomplete: Needs Additional Imaging Evaluation RISK: Based on the Tyrer-Cuzick (TC) risk assessment model, this patient has a 9.5% lifetime risk of developing breast cancer, meaning they are at average risk for developing breast cancer. However, this is only an estimate based on available history provided on the patient's questionnaire. We encourage all patients to talk with their providers about these results, further recommendations for managing breast health, and appropriate supplemental screening options if the patient has dense breast tissue. Interpreting Radiologist: Jhonatan Marquez M.D. Electronically signed on: 02/25/2025 Certified Professional Ergonomist: SHELLIE Transcribe Date/Time: Feb 24 2025 7:08A Dictated by: JHONATAN MARQUEZ MD This examination was interpreted and the report reviewed and electronically signed by: JHONATAN MARQUEZ MD on Feb 25 2025 10:45AM EST [id number] N Normal [facility] CBC W Auto Differential pane l (Bld)on 08-07-2023 Basophils (Bld) [#/Vol] 0.08 10*3/uL <0.11 k/uL [facility] Basophils/100 WBC (Bld) 1.2 % [facility] Differential cell count method Nom (Bld) Auto [facility] Eosinophils (Bld) [#/Vol] 0.25 10*3/uL <0.46 k/uL [facility] Eosinophils/100 WBC (Bld) 3.6 % [facility] Erythrocyte distribution width (RBC) [Ratio] 13.2 % 11.5 - 15.0 % [facility] Hematocrit (Bld) [Volume fraction] 46.2 % High 36.0 - 46.0 % [facility] Hemoglobin (Bld) [Mass/Vol] 15.0 g/dL 11.5 - 15.5 g/dL [facility] Immature granulocytes (Bld) [#/Vol] <0.10 k/uL [facility] Immature granulocytes/100 WBC (Bld) 0.1 % [facility] Lymphocytes (Bld) [#/Vol] 2.42 10*3/uL 1.00 - 4.00 k/uL [facility] Lymphocytes/100 WBC (Bld) 35.3 % [facility] MCH (RBC) [Entitic mass] 30.1 pg 26.0 - 34.0 pg [facility] MCHC (RBC) [Mass/Vol] 32.5 g/dL 30.5 - 36.0 g/dL [facility] MCV (RBC) [Entitic vol] 92.8 fL 80.0 - 100.0 fL [facility] Monocytes (Bld) [#/Vol] 0.52 10*3/uL <0.87 k/uL [facility] Monocytes/100 WBC (Bld) 7.6 % [facility] Neutrophils (Bld) [#/Vol] 3.58 10*3/uL 1.45 - 7.50 k/uL [facility] Neutrophils/100 WBC (Bld) 52.2 % [facility] Nucleated RBC (Bld) [#/Vol] <0.01 k/uL [facility] Nucleated RBC/100 WBC (Bld) [Ratio] 0.0 /100 WBC [facility] Platelet mean volume (Bld) [Entitic vol] 9.6 fL 9.0 - 12.7 fL [facility] Platelets (Bld) [#/Vol] 304 10*3/uL 150 - 400 k/uL [facility] RBC (Bld) [#/Vol] 4.98 10*6/uL 3.90 - 5.2 0 m/uL [facility] WBC (Bld) [#/Vol] 6.86 10*3/uL 3.70 - 11. 00 k/uL [facility] Comprehensive metabolic 2000 panelon 08-07-2023 Albumin [Mass/Vol] 4.7 g/dL 3.9 - 4.9 g/dL [facility] ALP [Catalytic activity/Vol] 74 U/L 34 - 123 U/L [facility] ALT [Catalytic activity/Vol] 31 U/L 7 - 38 U/L [facility] Anion gap [Moles/Vol] 13 mmol/L 9 - 18 mmol/L [facility] AST [Catalytic activity/Vol] 23 U/L 13 - 35 U/L [facility] Bilirubin [Mass/Vol] 0.8 mg/dL 0.2 - 1 .3 mg/dL [facility] Calcium [Mass/Vol] 9.5 mg/dL 8.5 - 10. 2 mg/dL [facility] Chloride [Moles/Vol] 105 mmol/L 97 - 10 5 mmol/L [facility] CO2 [Moles/Vol] 25 mmol/L 22 - 30 mmol/L [facility] Creatinine [Mass/Vol] 0.89 mg/dL 0.58 - 0.96 mg/dL [facility] Estimated Glomerular Filtration Rate 77 mL/min/1.73m >=60 mL/min/1.73m [facility] Glucose [Mass/Vol] 96 mg/dL 74 - 99 mg/dL [facility] Potassium [Moles/Vol] 4.0 mmol/L 3.7 - 5.1 mmol/L [facility] Protein [Mass/Vol] 7.2 g/dL 6.3 - 8.0 g/dL [facility] Sodium [Moles/Vol] 143 mmol/L 136 - 144 mmol/L [facility] Urea nitrogen [Mass/Vol] 11 mg/dL 7 - 21 mg/dL [facility] LIPID PANEL, NONFASTINGon Cholesterol [Mass/Vol] 200 mg/dL High <200 mg/dL [facility] HDL Cholesterol, Nonfasting 44 mg/dL >39 mg/dL [facility] LDL Cholesterol, Nonfasting 122 mg/dL High <100 mg/dL [facility] LDL/HDL Ratio, Nonfasting 2.77 mg/dL High <2.54 mg/dL [facility] Non HDL Cholesterol, Nonfasting 156 mg/dL High <130 mg/dL [facility] Total Chol/HDL Ratio, Nonfasting 4.55 mg/dL <5.10 mg/dL [facility] Triglycerides, Nonfasting 172 mg/dL High <150 mg/dL [facility] VLDL Cholesterol, Nonfasting 34 mg/dL High <30 mg/dL [facility] Vital Signs Date Time Vital Sign Value Performing Clinician Facility 04-24-2025 13:50-0400 Body height 170.2 cm Kevin Salazar MD Work Phone: [facility] 04-24-2025 13:50-0400 Body mass index (BMI) [Ratio] 39 kg/m2 Kevin Salazar MD Work Phone: [facility] 04-24-2025 13:50-0400 Body temperature 97.7 [degF] Kevin Salazar MD Work Phone: [facility] 04-24-2025 13:50-0400 Body weight 112.95 kg Kevin Salazar MD Work Phone: [facility] 04-24-2025 13:50-0400 Diastolic blood pressure 104 mm[Hg] Kevin Salazar MD Work Phone: [facility] Comment on above: Dr. Salazar notified of blood pressure. Patient reports she has been rushing all day long. 04-24-2025 13:50-0400 Heart rate 88 /min Kevin Salazar MD Work Phone: [facility] 04-24-2025 13:50-0400 Respiratory rate 12 /min Kevin Salazar MD Work Phone: [facility] 04-24-2025 13:50-0400 SaO2% (BldA) [Mass fraction] 97 % Kevin Salazar MD Work Phone: [facility] 04-24-2025 13:50-0400 Systolic blood pressure 160 mm[Hg] Kevin Salazar MD Work Phone: [facility] Comment on above: Dr. Salazar notified of blood pressure. Patient reports she has been rushing all day long. 03-06-2025 15:05-0400 Body height 172.7 cm Radha Taylor APRN.BOTTOM BRUSHER Work Phone: [facility] 03-06-2025 15:05-0400 Body mass index (BMI) [Ratio] 37.25 kg/m2 Radha Taylor APRN.BOTTOM BRUSHER Work Phone: [facility] 03-06-2025 15:05-0400 Body weight 111.13 kg Radha Taylor [employer] MECH[employer]IC.BOTTOM BRUSHER Work Phone: [facility] 03-06-2025 15:05-0400 Diastolic blood pressure 90 mm[Hg] Radha Taylor [employer] MECH[employer]IC.[employer]OTTOM BRUSHER Work Phone: [facility] 03-06-2025 15:05-0400 Heart rate 76 /min Radha Taylor APRN.BOTTOM BRUSHER Work Phone: [facility] 03-06-2025 15:05-0400 Systolic blood pressure 138 mm[Hg] Radha Taylor [employer] MECH[employer]OTTOM BRUSHER Work Phone: [facility] 08-07-2023 08:43-0400 Body height 172.7 cm Radha Taylor [employer] MECH[employer]IC.[employer]OTTOM BRUSHER Work Phone: [facility] 08-07-2023 08:43-0400 Body weight 111.13 kg Radha Taylor APRN.BOTTOM BRUSHER Work Phone: [facility] 08-07-2023 08:43-0400 Diastolic blood pressure 72 mm[Hg] Radha Taylor [employer] MECH[employer]IC.[employer]OTTOM BRUSHER Work Phone: [facility] 08-07-2023 08:43-0400 Heart rate 70 /min Radha Taylor APRN.BOTTOM BRUSHER Work Phone: [facility] 08-07-2023 08:43-0400 Respiratory rate 14 /min Radha Taylor APRN.BOTTOM BRUSHER Work Phone: [facility] 08-07-2023 08:43-0400 Systolic blood pressure 128 mm[Hg] Radha Taylor APRN.BOTTOM BRUSHER Work Phone: [facility] Encounters Encounter Date Encounter Type Care Provider Facility Start: 05-16-2025 End: 05-16-2025 Telephone encounter Zuleika Mallory RN Mammography Comment on above: Results Start: 05-12-2025 ambulatory RADHA TAYLOR Facilit y:[facility] Start: 05-12-2025 End: 05-12-2025 Subsequent hospital visit by physician Procedure Mammo [facility] Mammography Comment on above: Abnormal mammogram [ R92.8] Start: 05-02-2025 End: 05-02-2025 Patient encounter procedure Kevin Salazar MD Work Phone: General Surgery Comment on above: Abnormal mammogram ( Primary Dx) Start: 05-02-2025 End: 05-02-2025 ambulatory RADHA TAYLOR Facility:[facility] Start: 04-24-2025 End: 04-24-2025 Patient encounter procedure Kevin Salazar MD Work Phone: General Surgery Comment on above: Abnormal mammogram ( Primary Dx) Start: 04-24-2025 End: 04-24-2025 ambulatory RADHA TAYLOR Facility:[facility] Start: 04-12-2025 ambulatory RADHA TAYLOR Facilit y:[facility] Start: 04-12-2025 End: 04-12-2025 Subsequent hospital visit by physician [facility] Mammogram Comment on above: Abnormal mammogram [ R92.8] Start: 03-07-2025 Encounter for genera l adult medical examination without abnormal findings Radha Taylor [facility] Start: 03-06-2025 End: 03-06-2025 Patient encounter procedure Radha Taylor APRN.BOTTOM BRUSHER Work Phone: [facility] Comment on above: Abnormal mammogram ( Primary Dx); Screening for diabetes mellitus; Encounter for lipid screening for cardiovascular disease; Wellness examination; Large breasts Start: 03-06-2025 End: 03-06-2025 Patient encounter status Radha Taylor APRN.BOTTOM BRUSHER Work Phone: [facility] Start: 03-06-2025 End: 03-06-2025 ambulatory Radha Taylor Facility:[facility] Start: 03-06-2025 Encounter for genera l adult medical examination without abnormal findings RADHA TAYLOR [facility] Start: 02-28-2025 End: 04-30-2025 Follow-up encounter Radha Taylor APRN.CNP Work Phone: [facility] Comment on above: Results Start: 02-24-2025 End: 02-24-2025 ambulatory RADHA TAYLOR Facility:[facility] Start: 02-24-2025 End: 02-24-2025 Subsequent hospital visit by physician Screen Mammo [facility] M[facility]ogram Comment on above: Encounter for screen ing mammogram for breast cancer [Z12.31] Start: 01-03-2025 End: 02-03-2025 ambulatory Radha Taylor APRN.CNP Work Phone: [facility] Start: 08-07-2023 End: 08-07-2023 Patient encounter procedure Radha Taylor APRN.CNP Work Phone: [facility] Comment on above: Wellness examination (Primary Dx); Screening for diabetes mellitus; Screening for lipid disorders; Encounter for lipid screening for cardiovascular disease; Encounter for screening mammogram for breast cancer; Poison sid dermatitis; Encounter for immunization Start: 08-07-2023 End: 08-07-2023 Patient encounter status Radha Taylor APRN.CNP Work Phone: [facility] Work Phone: Procedures Date Procedure Procedure Detail Performing Clinician Start: 05-12-2025 Diagnostic mammograp hy computer-aided detcj uni Kevin Salazar MD Work Phone: Start: 05-12-2025 Bx breast w/device 1 st lesion ultrasound guid Kevin Salazar MD Work Phone: Start: 04-12-2025 End: 04-12-2025 Us breast uni real time with image limited Radha Taylor APRN.CNP Work Phone: Start: 04-12-2025 Digital breast tomosynthesis bilateral Radha Taylor APRN.CNP Work Phone: Start: 08-07-2023 INFLUENZA VACCINE, A GE 6 MO - 64 YR, QUADRIVALENT (AFLURIA, FLULAVAL, FLUZONE) Radha Taylor [employer]INE [employer] MECH[employer]IC.WADE Work Phone: Start: 08-07-2023 Lipid 1996 panel - S kirsten or Plasma Radha Taylor [employer] MECH[employer]IC.WADE Work Phone: Plan of Treatment Date Care Activity Detail Author Start: 08-07-2028 Lipid 1996 panel - Serum or Plasma Lipid Screening [facility] Start: 08-07-2028 Lipid panel Lipid Screening [facility] Start: 01-12-2028 HPV Testing HPV Testing [facility] Start: 01-12-2028 Pap Testing Pap Testing [facility] Start: 08-07-2026 Diabetes Screening Diabetes Screenin g [facility] Start: 07-17-2026 Colonoscopy Colonoscopy [facility] Start: 07-17-2026 Colorectal Cancer Screening Colorectal Cancer Screening [facility] Start: 07-17-2026 Screening for malign ant neoplasm of colon [facility] Start: 04-12-2026 Screening for malign ant neoplasm of breast Mammogram Screening [facility] Start: 02-24-2026 Screening for malign ant neoplasm of breast Mammogram Screening [facility] Start: 01-12-2026 Screening for malign ant neoplasm of cervix Cervical Cancer Screening [facility] Start: 07-17-2025 Influenza vaccination Influenza Vacc ine (#1) [facility] Start: 06-01-2025 End: 06-01-2025 Patient encounter procedure 06/01/2025 12:00 PM EDT Office Visit Family [address] [id number] Radha Taylor APRN.BOTTOM BRUSHER [address] [place] [id number] Wellness physical [facility] Comment on above: Wellness physical Start: 05-22-2025 End: 05-22-2025 Patient encounter procedure 05/22/2025 7:40 AM EDT Office Visit Family [address] [address] Radha Taylor APRN.BOTTOM BRUSHER [address] [place] [phone] Wellness physical [facility] Comment on above: Wellness physical Start: 05-12-2025 End: 05-12-2025 Patient encounter procedure 05/12/2025 7:30 AM EDT Appointment Mammography [address] [place] [address] US BIOPSY BREAST RIGHT Mammography Comment on above: US BIOPSY BREAST RIG HT Start: 05-09-2025 End: 05-09-2025 Patient encounter procedure 05/09/2025 8:00 AM EDT Office Visit Family [facility] [place] [address] [place], [place] [phone] Radha Taylor APRN.BOTTOM BRUSHER [address] [place], [place] [phone] Wellness physical [facility] [place] Comment on above: Wellness physical Start: 05-02-2025 End: 05-02-2025 Patient encounter procedure 05/02/2025 8:30 AM EDT Office Visit General Surgery [address] [place], [place] [address] Kevin Salazar MD [address] [place], [place] [id number] PROCEDURE: Right breast biopsy: Ultrasound-guided biopsy is General Surgery Comment on above: PROCEDURE: Right maryellen ast biopsy: Ultrasound-guided biopsy is Start: 05-01-2025 End: 05-01-2025 Patient encounter procedure 05/01/2025 7:40 AM EDT Office Visit Family Medicine [place] [address] [place], [place] [address] Radha Taylor APRN.BOTTOM BRUSHER [address] [place], [place] [phone] Wellness physical [facility] Comment on above: Wellness physical Start: 04-24-2025 End: 04-24-2025 Patient encounter procedure 04/24/2025 2:00 PM EDT Office Visit General Surgery [address] [place], [place] [phone] Kevin Salazar MD [address] [place], [place] [address] breast consult General Surgery Comment on above: breast consult Start: 04-17-2025 End: 04-17-2025 Patient encounter procedure 04/17/2025 11:00 AM EDT Office Visit [facility] [address] [place], [place] [phone] Radha Taylor APRN.BOTTOM BRUSHER [address] [place], [place] [phone] Wellness physical [facility] Comment on above: Wellness physical Start: 04-12-2025 End: 04-12-2025 Patient encounter procedure Mammogram Comment on above: Abnormal mammogram [ R92.8] Start: 03-06-2025 End: 06-05-2025 CBC W Auto Differential panel - Blood COMPLETE BLOOD COUNT AND DIFFERENTIAL Lab Routine Wellness examination Expected: 03/06/2025, Expires: 06/05/2025 [facility] Comment on above: Expected: 03/06/2025 , Expires: 06/05/2025 Start: 03-06-2025 End: 06-05-2025 Comprehensive metabolic 2000 panel - Serum or Plasma COMPREHENSIVE METABOLIC PANEL Lab Routine Wellness examination Expected: 03/06/2025, Expires: 06/05/2025 [facility] Comment on above: Expected: 03/06/2025 , Expires: 06/05/2025 Start: 03-06-2025 End: 06-05-2025 Hemoglobin A1c in Blood HEMOGLOBIN A1C Lab Routine Screening for diabetes mellitus Expected: 03/06/2025, Expires: 06/05/2025 [facility] Comment on above: Expected: 03/06/2025 , Expires: 06/05/2025 Start: 03-06-2025 End: 06-05-2025 LIPID PANEL, NONFASTING LIPID PANEL, NONFASTING Lab Routine Encounter for lipid screening for cardiovascular disease Expected: 03/06/2025, Expires: 06/05/2025 [facility] Comment on above: Expected: 03/06/2025 , Expires: 06/05/2025 Start: 02-24-2025 End: 02-24-2025 Patient encounter procedure 02/24/2025 7:30 AM EDT Appointment Mammogram [address] [address] Mammogram Start: 11-17-2024 Screening for malign ant neoplasm of breast Mammogram Screening [facility] Start: 08-07-2024 Urine microalbumin profile DTaP,Tdap,Td Vaccine (1 - Tdap) [facility] Comment on above: Postponed from 08/05 (Declined at this time) Start: 07-17-2024 Covid-19 Vaccine () Covid-19 Vaccine () [facility] Start: 07-17-2024 Covid-19 Vaccine () Covid-19 Vaccine () [facility] Start: 08-07-2023 End: 10-07-2023 Hemoglobin A1c in Blood [facility] Work Phone: Comment on above: Expected: 08/07/2023 , Expires: 10/07/2023 Start: 10-17-2022 Covid-19 Vaccine (4 - Moderna series) Covid-19 Vaccine (4 - Moderna series) [facility] Start: 2019 Pneumococcal Vaccine : 50+ (1 of 1 - PCV) Pneumococcal Vaccine: 50+ (1 of 1 - PCV) [facility] Start: 2014 Cologuard (FIT-DNA) Cologuard (FIT-D NA) [facility] Start: [address] COLONOGRAPHY [facility] Start: 2014 Fecal Occult Blood Fecal Occult Bloo d [facility] Start: 2014 Screening for malign ant neoplasm of colon [facility] Start: 2014 SIGMOIDOSCOPY SIGMOIDOSCOPY [facility] Start: 2009 Mammography Mammogram Screening [facility] Start: 1988 Urine microalbumin profile DTaP,Tdap,Td Vaccine (1 - Tdap) [facility] Start: 1987 Anxiety Screening Anxiety Screening [facility] Start: 1987 Depression Screening Depression Scre ening [facility] End: 02-02-2026 DBT Breast - bilateral screening YEE SCREENING W ANUSHKA Radiology Routine Encounter for screening mammogram for breast cancer 1 Occurrences starting 01/03/2025 until 02/02/2026 [facility] Work Phone: Comment on above: 1 Occurrences starti ng 01/03/2025 until 02/02/2026 DBT Breast - bilater al screening YEE SCREENING W [place]KA Radiology Routine Encounter for screening mammogram for breast cancer 02/24/2025 7:22 AM EDT [facility] Work Phone: End: 09-05-2024 YEE SCREENING YEE SCREENING Radiology Routine Encounter for screening mammogram for breast cancer 1 Occurrences starting 08/07/2023 until 09/05/2024 [facility] Work Phone: Comment on above: 1 Occurrences starti ng 08/07/2023 until 09/05/2024 End: 04-05-2026 MG Breast - bilateral Diagnostic YEE DIAGNOSTIC BILATERAL Radiology Routine Abnormal mammogram 1 Occurrences starting 03/06/2025 until 04/05/2026 [facility] Work Phone: Comment on above: 1 Occurrences starti ng 03/06/2025 until 04/05/2026 End: 03-30-2026 MG Breast - right Diagnostic for implant YEE DIAGNOSTIC RIGHT Radiology Routine Abnormal mammogram 1 Occurrences starting 02/28/2025 until 03/30/2026 [facility] Work Phone: Comment on above: 1 Occurrences starti ng 02/28/2025 until 03/30/2026 Tissue Pathology bio psy report [facility] Work Phone: Comment on above: Release Upon Orderin g for 1 Occurrences starting 05/12/2025, 1 completed End: 04-05-2026 US Breast - left limited US BREAST LTD LEFT Radiology Routine Abnormal mammogram 1 Occurrences starting 03/06/2025 until 04/05/2026 [facility] Comment on above: 1 Occurrences starti ng 03/06/2025 until 04/05/2026 US BREAST BIOPSY RIG HT (POC) SURG USE ONLY US BREAST BIOPSY RIGHT (POC) SURG USE ONLY Imaging Procedures Routine Abnormal mammogram Ordered: 05/02/2025 [facility] Work Phone: Comment on above: Ordered: 05/02/2025 End: 06-01-2026 US Guidance for biopsy of Breast - right US BIOPSY BREAST RIGHT Radiology Routine Abnormal mammogram 1 Occurrences starting 05/02/2025 until 06/01/2026 [facility] Comment on above: 1 Occurrences starti ng 05/02/2025 until [facility] Immunization Date Immunization Notes Care Provider Ladan mendosa 07-15-2024 influenza virus vaccine, unspecified formulation Radha Taylor [employer] MECH[employer]IC.BOTTOM BRUSHER Work Phone: [facility] 08-07-2023 influenza, injectabl e, quadrivalent, contains preservative Radha Brendaoble GASOLINE PUMP MECHANIC.BOTTOM BRUSHER Work Phone: [facility] 08-22-2022 COVID-19 original vaccine, booster dose, monovalent (MODERNA) Radha Knoble GASOLINE PUMP MECHANIC.[facility] Work Phone: [facility] Work Phone: 08-22-2022 COVID-19 vaccine, ag e 12+ yr, bivalent (MODERNA) Radha Brendaoble GASOLINE PUMP MECHANIC.BOTTOM BRUSHER Work Phone: [facility] 08-22-2022 Influenza, injectabl e, Madin [place] Canine Kidney, preservative free, quadrivalent Radha Knoble GASOLINE PUMP MECHANIC.BOTTOM BRUSHER Work Phone: [facility] Work Phone: 09-06-2021 COVID-19 original vaccine, booster dose, monovalent (MODERNA) Radha Knoble GASOLINE PUMP MECHANIC.BOTTOM BRUSHER Work Phone: [facility] Work Phone: 08-03-2021 Influenza, injectabl e, Madin [place] Canine Kidney, preservative free, quadrivalent Radha Knoble GASOLINE PUMP MECHANIC.BOTTOM BRUSHER Work Phone: [facility] Work Phone: 01-29-2021 COVID-19 original vaccine, booster dose, monovalent (MODERNA) Radha Knoble GASOLINE PUMP MECHANIC.[employer] Work Phone: [facility] Work Phone: 12-31-2020 COVID-19 original vaccine, full dose, monovalent (MODERNA) Radha Taylor GASOLINE PUMP MECHANIC.[facility] Work Phone: [facility] Work Phone: 12-01-2020 zoster vaccine recombinant Radha Taylor GASOLINE PUMP MECHANIC.[employer] Work Phone: [facility] Work Phone: 08-12-2020 zoster vaccine recombinant Radha Taylor GASOLINE PUMP MECHANIC.[employer] Work Phone: [facility] Work Phone: 10-03-2019 influenza, injectabl e, quadrivalent, preservative free Radha Brandon GASOLINE PUMP MECHANIC.[facility] Work Phone: [facility] 08-19-2018 influenza, injectabl e, quadrivalent, preservative free Radha Brendaoble GASOLINE PUMP MECHANIC.[facility] Work Phone: [facility] 08-19-2017 influenza, injectabl e, quadrivalent, preservative free Radha Brendaoble GASOLINE PUMP MECHANIC.[facility] Work Phone: [facility] Payers Date Payer Category Payer Self-pay 2024 Unknown [id number] 2023 Private Health Insurance [id number] 2023 Private Health Insurance [id number] 2023 Private Health Insurance [id number] 2022 Unknown [employer] C[employer] PPO OOS [id number] 2022-Present [phone] [id number] [place] [address] PPO [id number] Social History Date Type Detail Facility Start: 08-07-2023 Tobacco smoking stat [facility] Never smoked tobacco [facility] Work Phone: Start: 08-07-2023 Tobacco use and exposure Smokeless tobacco non-user [facility] Work Phone: Start: 08-07-2023 End: 04-24-2025 Alcohol intake Current drinker of alcohol (finding) [facility] Start: 08-07-2023 End: 02-28-2025 History of Social function [facility] Start: 08-07-2023 End: 02-28-2025 [facility] Utilities [facility] Has the electric, [employer], oil, or water company threatened to shut off services in your home in past 12Mo No [facility] Are you now , , , , never or living with a partner? [facility] How often to you hav e a drink containing alcohol? Monthly or less [facility] How many standard drinks containing alcohol do you have on a typical day? 1 or 2 [facility] How often do you hav e 6 or more drinks on 1 occasion? Never [facility] How hard is it for y ou to pay for the very basics like food, housing, medical care, and heating Not very hard [facility] Adult Depression Screening Assessment 0 [facility] Work Phone: Do you feel stress - tense, restless, nervous, or anxious, or unable to sleep at night because your mind is troubled all the time - these days [OSQ] Not at all [facility] (I/We) worried wheth er (my/our) food would run out before (I/we) got money to buy more. Never true [facility] Start: 08-07-2023 Alcohol Comment once a month [facility] Start: 1970 Sex Assigned At Not on file C [facility] Medical Equipment Procedure Code Equipment Code Equipment Origin al Text Equipment Identifier Dates Breast Us Core B x Clip [id number] Start: 05-12-2025 Comment on above: Description: Ribbon clip Functional Status Date Assessment Result Facility 02-28-2025 Total score [AUDIT-C] 1 02/29/20 10:25 AM EDT User, Tiki [facility] 02-28-2025 How often to you hav e a drink containing alcohol? Monthly or less 02/28/2025 10:25 AM EDT User, Tiki Monthly or less [facility] 02-28-[address] inks containing alcohol do you have on a typical day? 1 or 2 02/28/2025 10:25 AM EDT UserTiki 1 or 2 [facility] 02-28-2025 How often do you hav e 6 or more drinks on 1 occasion? Never 02/28/2025 10:25 AM EDT Tiki Cisse Never [facility] Clinical Notes 08-07-2023 to 05-12-2025 Patient Education - Taty Hernandez RT(R) - 05/12/2025 8:07 AM EDTPatient Education - Taty Hernandez RT(R) - 05/12/2025 8:07 AM EDTPKevin rebollar MD - 05/07/2025 11:58 AM EDT Note Date & Type Note Facility 05-12-2025 Instructions Formatting of th is note might be different from the original. Post procedure written instructions were given to patient. [facility] 05-12-2025 Note HNO ID: [id number] Author: TATY HERNANDEZ RT(R) Service: Radiology Author Type: Gastroenterology Nurse Practitioner Type: Patient Education Filed: 05/12/2025 08:08 Note Text: Post procedure written instructions were given to patient. [facility] 05-12-2025 Miscellaneous Notes Formattin g of this note might be different from the original. Post procedure written instructions were given to patient. documented in this encounter [facility] 05-07-2025 Note HNO ID: [id number] Author: KEVIN SALAZAR MD Service: ? Author Type: Physician Type: Progress Notes Filed: 05/07/2025 12:01 Note Text: HISTORY AND PHYSICAL - BREAST COMPLAINT Sonja Beltran 1970 REFERRING PHYSICIAN: No ref. provider found CHIEF COMPLAINT: Abnormal mammogram (primary encounter diagnosis) HPI: The patient is a 54 year old female with a complaint of an abnormal mammogram. The patient had a mammogram with ultrasound on 04/12/25 which demonstrated : IMPRESSION: Finding 1: Lesion in the right breast at 10 o'clock, 9 cm from the nipple is suspicious for malignancy. Ultrasound-guided biopsy is recommended. Finding 2: Calcifications in the upper outer quadrant of the left breast, middle depth are probably benign. A follow-up in 6 months is recommended. Finding 3: The asymmetry in the upper outer quadrant of the left breast, posterior depth is probably benign. This likely represents fibroglandular tissue. A follow-up mammogram in 6 months is recommended. The patient denies a history of breast masses. She does perform a self breast exam routinely. She notes no skin changes. She denies nipple discharge. She notes no axillary masses. She notes no family history of breast problems. She notes no significant breast trauma or breast difficulties in the past. PAST MEDICAL HISTORY Diagnosis Date Seasonal allergies Status post bilateral LASIK surgery 1994 PAST SURGICAL HISTORY Procedure Laterality Date KNEE LEFT OP SURGERY Left LAPS TX ECTOPIC PREG W/SALPINGAND/OOPHORECTOMY Had one fallopian tube Current Outpatient Medications Medication Sig Dispense Refill fluticasone (FLONASE ALLERGY RELIEF) 50 mcg/actuation nasal spray Use 1 [place] in each nostril once daily. No current facility-administered medications for this visit. ALLERGIES: Seasonal Allergies PERSONAL HISTORY: Social History Tobacco Use Smoking status: Never Smokeless tobacco: Never Vaping Use Vaping status: Never Used Substance Use Topics Alcohol use: Yes Comment: once a month Drug use: Never FAMILY HISTORY: FAMILY HISTORY Problem Relation Age of Onset Osteoporosis Mother other (spinal stenosis) Mother Melanoma Father other (enlarged prostate) Father Breast Cancer Sister No Known Problems Sister Macular Degen Maternal Grandmother other (myasthenia gravis) Maternal Grandmother Stroke Maternal Grandfather Breast Cancer Paternal Grandmother No Known Problems Paternal Grandfather REVIEW OF SYMPTOMS: The review of systems data was entered by the nurse and reviewed by me There are no exam notes on file for this visit. PHYSICAL EXAMINATION: General: The patient is 54 year old female, well nourished, well hydrated in no acute distress. The patient is oriented to time, place, and person. VITALS: Blood pressure 160/104, pulse 88, temperature 36.5 ?C (97.7 ?F), temperature source Temporal, resp. rate 12, height 170.2 cm (5' 7), weight 112.9 kg (249 lb), SpO2 97%. Body mass index is 39 kg/m?. HEENT: Normal cephalic, ataumatic, pupils are equally round, sclera are anicteric, mucous membranes are moist, oropharynx is clear. Neck has no masses, asymmetry or lymphadenopathy. Thyroid is unremarkable. Respiratory: Clear to auscultation and percussion. Normal respiratory excursion and pattern. Cardiac: Examination is regular rate and rhythm. Abdominal exam: Soft, nontender, with no palpable masses. No hepatosplenomegaly. No palpable hernias. Rectal exam: exam deferred Extremities: no clubbing, cyanosis or edema. No adenopathy. Breast: Visual inspection reveals no retractions, nipple inversion, or skin changes. Palpation of the right breast reveals no dominant or suspicious masses, but multiple benign-feeling nodules. Palpation of the left breast reveals no dominant or suspicious masses, but multiple benign-feeling nodules. Axillary exam demonstrates no suspicious masses in either the left or right axilla. There is no nipple discharge expressed from either the left or right breast. LABORATORY VALUES: As Noted RADIOLOGIC STUDIES: As Noted Assessment IMPRESSION: Abnormal mammogram (primary encounter diagnosis) PLAN: I plan to perform a ultrasound guided core biopsy of the right breast. The planned surgical procedure was discussed extensively with the patient. The risks, benefits, anticipated outcomes and possible complications were mentioned. My staff has also explained the procedure in understandable terms and the patient was given the option to take printed material concerning the planned procedure. The patient had the opportunity to ask questions concerning the planned procedure. The patient freely consents to the planned procedure. Diagnoses: (R92.8) Abnormal mammogram (primary encounter diagnosis) Return to Clinic: The patient is instructed to follow-up with me 1 week post operatively. Kevin Salazar III, MD [facility] 05-07-2025 History of Presen t illness Narrative HISTORY AND PHYSICAL - BREAST COMPLAINT Sonja Mikechio 1970 REFERRING PHYSICIAN: No ref. provider found CHIEF COMPLAINT: Abnormal mammogram (primary encounter diagnosis) HPI: The patient is a 54 year old female with a complaint of an abnormal mammogram. The patient had a mammogram with ultrasound on 04/12/25 which demonstrated : IMPRESSION: Finding 1: Lesion in the right breast at 10 o'clock, 9 cm from the nipple is suspicious for malignancy. Ultrasound-guided biopsy is recommended. Finding 2: Calcifications in the upper outer quadrant of the left breast, middle depth are probably benign. A follow-up in 6 months is recommended. Finding 3: The asymmetry in the upper outer quadrant of the left breast, posterior depth is probably benign. This likely represents fibroglandular tissue. A follow-up mammogram in 6 months is recommended. The patient denies a history of breast masses. She does perform a self breast exam routinely. She notes no skin changes. She denies nipple discharge. She notes no axillary masses. She notes no family history of breast problems. She notes no significant breast trauma or breast difficulties in the past. PAST MEDICAL HISTORY Diagnosis Date Seasonal allergies Status post bilateral LASIK surgery 1994 PAST SURGICAL HISTORY Procedure Laterality Date KNEE LEFT OP SURGERY Left LAPS TX ECTOPIC PREG W/SALPING&/OOPHORECTOMY Had one fallopian tube Current Outpatient Medications Medication Sig Dispense Refill fluticasone (FLONASE ALLERGY RELIEF) 50 mcg/actuation nasal spray Use 1 [place] in each nostril once daily. No current facility-administered medications for this visit. ALLERGIES: Seasonal Allergies PERSONAL HISTORY: Social History Tobacco Use Smoking status: Never Smokeless tobacco: Never Vaping Use Vaping status: Never Used Substance Use Topics Alcohol use: Yes Comment: once a month Drug use: Never FAMILY HISTORY: FAMILY HISTORY Problem Relation Age of Onset Osteoporosis Mother other (spinal stenosis) Mother Melanoma Father other (enlarged prostate) Father Breast Cancer Sister No Known Problems Sister Macular Degen Maternal Grandmother other (myasthenia gravis) Maternal Grandmother Stroke Maternal Grandfather Breast Cancer Paternal Grandmother No Known Problems Paternal Grandfather REVIEW OF SYMPTOMS: The review of systems data was entered by the nurse and reviewed by me There are no exam notes on file for this visit. PHYSICAL EXAMINATION: General: The patient is 54 year old female, well nourished, well hydrated in no acute distress. The patient is oriented to time, place, and person. VITALS: Blood pressure 160/104, pulse 88, temperature 36.5 C (97.7 F), temperature source Temporal, resp. rate 12, height 170.2 cm (5' 7), weight 112.9 kg (249 lb), SpO2 97%. Body mass index is 39 kg/m . HEENT: Normal cephalic, ataumatic, pupils are equally round, sclera are anicteric, mucous membranes are moist, oropharynx is clear. Neck has no masses, asymmetry or lymphadenopathy. Thyroid is unremarkable. Respiratory: Clear to auscultation and percussion. Normal respiratory excursion and pattern. Cardiac: Examination is regular rate and rhythm. Abdominal exam: Soft, nontender, with no palpable masses. No hepatosplenomegaly. No palpable hernias. Rectal exam: exam deferred Extremities: no clubbing, cyanosis or edema. No adenopathy. Breast: Visual inspection reveals no retractions, nipple inversion, or skin changes. Palpation of the right breast reveals no dominant or suspicious masses, but multiple benign-feeling nodules. Palpation of the left breast reveals no dominant or suspicious masses, but multiple benign-feeling nodules. Axillary exam demonstrates no suspicious masses in either the left or right axilla. There is no nipple discharge expressed from either the left or right breast. LABORATORY VALUES: As Noted RADIOLOGIC STUDIES: As Noted Assessment IMPRESSION: Abnormal mammogram (primary encounter diagnosis) PLAN: I plan to perform a ultrasound guided core biopsy of the right breast. The planned surgical procedure was discussed extensively with the patient. The risks, benefits, anticipated outcomes and possible complications were mentioned. My staff has also explained the procedure in understandable terms and the patient was given the option to take printed material concerning the planned procedure. The patient had the opportunity to ask questions concerning the planned procedure. The patient freely consents to the planned procedure. Diagnoses: (R92.8) Abnormal mammogram (primary encounter diagnosis) Return to Clinic: The patient is instructed to follow-up with me 1 week post operatively. Kevin Salazar III, MD REVIEW OF SYSTEMS: General: The patient denies fatigue, denies weight loss, denies weight gain, denies feeling hot, and denies feelings of cold. Eyes: The patient denies glaucoma, denies eye injury/surgery, wears glasses or contacts. Ear/Nose/Throat: The patient denies allergies, denies hayfever, denies ear infections, and denies bloody noses. Cardiovascular: The patient denies chest pain, denies heart disease, denies high blood pressure,denies cardiac stent, denies prior heart attack, denies irregular heart beat, denies high cholesterol, denies poor circulation, denies heart failure, other cardiac issues, denies claudication, denies cold feet, denies peripheral arterial stent. Respiratory: The patient denies tuberculosis, denies pneumonia, denies frequent cough, denies pulmonary embolism, denies shortness of breath, and denies coughing up blood. Gastrointestinal: The patient denies difficulty swallowing, denies acid reflux, denies ulcers, denies vomiting, denies jaundice/hepatitis, denies gallbladder problems, denies black or tarry stools, denies hemorrhoids, denies bleeding from rectum, denies diverticulitis, denies constipation, denies diarrhea, denies loss of stool control, and denies hernias. Kidney/Bladder: The patient denies kidney stones, denies urine infections, and denies bloody urine. Skin: The patient denies a history of skin cancer, denies bleeding/changing moles, and denies a history of skin rash. Neurologic: The patient denies a history of epilepsy/convulsions, denies headaches, denies head/spinal injuries, and denies stroke/TIA. Psychiatric: The patient denies psychiatric medications, denies depression, and denies voices, denies substance abuse. Endocrine: The patient denies thyroid disorders, denies diabetes, and denies hormonal problems. Hematologic: The patient denies a history of bruising, denies bleeding, and denies anemia, denies blood clots. Infections: The patient denies a history of measles and mumps, denies rheumatic fever, and denies sexually transmitted diseases. Musculoskeletal: The patient denies back pain/injury, denies back problems, denies sciatica, denies knee/foot trouble, denies arthritis, or denies gout. When was patient's last Mammogram screening? 04/13/2025 Last Colonoscopy: N/A Diego Fu LPN documented in this encounter [facility] 05-02-2025 Note HNO ID: [id number] Author: KEVIN SALAZAR MD Service: ? Author Type: Physician Type: Progress Notes Filed: 05/02/2025 08:52 Note Text: Unable to see the lesion. I am going to have to get her scheduled with interventional radiology. No charge for today's visit [facility] 05-02-2025 History of Presen t illness Narrative Unable to see the lesion. I am going to have to get her scheduled with interventional radiology. No charge for today's visit documented in this encounter [facility] 05-02-2025 Note HNO ID: [id number] Author: SADAF MICHEL RN Service: ? Author Type: Registered Nurse Type: Procedures Filed: 05/02/2025 08:39 Note Text: UNIVERSAL PROTOCOL / SAFETY CHECKLIST Procedure to be Performed: Ultrasound Guided Needle Core Biopsy right breast Sign In: A Moment of CARE was completed. Appropriate PPE (Personal Protective Equipment) worn by all providers involved with the procedure. Special equipment utilized Ultrasound, needle core biopsy. Patient/Surrogate Stated/Verified: Patient name, Date of , Relevant allergies, and The intended procedure Time Out: Relevant labs, photos, and/or imaging studies have been reviewed. Intended patient and procedure match the source document(s) (e.g. consent, HANDP, associated studies [imaging, pathology]) match the intended patient and procedure. Consent obtained and matches the intended procedure. Yes. Correct side/site has been marked and visible. Medications required for this procedure are verified. Fire risk assessed and is not applicable. Implants: Correct implant(s) confirmed including size and side. Expiration date(s) reviewed. Sign Out: Specimens are all correctly labeled and sent. All instruments, equipment, possible retained foreign bodies are accounted for. Yes. The post-procedure plan of care has been communicated to the patient or surrogate. [facility] 04-24-2025 Note HNO ID: [id number] Author: DIEGO FU LPN Service: ? Author Type: LICENSED NURSE Type: Progress Notes Filed: 05/07/2025 12:01 Note Text: REVIEW OF SYSTEMS: General: The patient denies fatigue, denies weight loss, denies weight gain, denies feeling hot, and denies feelings of cold. Eyes: The patient denies glaucoma, denies eye injury/surgery, wears glasses or contacts. Ear/Nose/Throat: The patient denies allergies, denies hayfever, denies ear infections, and denies bloody noses. Cardiovascular: The patient denies chest pain, denies heart disease, denies high blood pressure,denies cardiac stent, denies prior heart attack, denies irregular heart beat, denies high cholesterol, denies poor circulation, denies heart failure, other cardiac issues, denies claudication, denies cold feet, denies peripheral arterial stent. Respiratory: The patient denies tuberculosis, denies pneumonia, denies frequent cough, denies pulmonary embolism, denies shortness of breath, and denies coughing up blood. Gastrointestinal: The patient denies difficulty swallowing, denies acid reflux, denies ulcers, denies vomiting, denies jaundice/hepatitis, denies gallbladder problems, denies black or tarry stools, denies hemorrhoids, denies bleeding from rectum, denies diverticulitis, denies constipation, denies diarrhea, denies loss of stool control, and denies hernias. Kidney/Bladder: The patient denies kidney stones, denies urine infections, and denies bloody urine. Skin: The patient denies a history of skin cancer, denies bleeding/changing moles, and denies a history of skin rash. Neurologic: The patient denies a history of epilepsy/convulsions, denies headaches, denies head/spinal injuries, and denies stroke/TIA. Psychiatric: The patient denies psychiatric medications, denies depression, and denies voices, denies substance abuse. Endocrine: The patient denies thyroid disorders, denies diabetes, and denies hormonal problems. Hematologic: The patient denies a history of bruising, denies bleeding, and denies anemia, denies blood clots. Infections: The patient denies a history of measles and mumps, denies rheumatic fever, and denies sexually transmitted diseases. Musculoskeletal: The patient denies back pain/injury, denies back problems, denies sciatica, denies knee/foot trouble, denies arthritis, or denies gout. When was patient's last Mammogram screening? 04/13/2025 Last Colonoscopy: N/A Diego Fu LPN [facility] 04-12-2025 History of Presen t illness Narrative Radiology Service Progress Note PATIENT NAME: Sonja Beltran DATE OF SERVICE: April 12, 2025 TIME: 1:38 PM PATIENT IDENTITY VERIFICATION COMPLETED USING TWO (2) IDENTIFIERS: Name and Date of confirmed by patient verbally. FALL SCREENING: Has the patient had 2 falls in the last year or 1 fall with injury or currently using an Ambulatory Assistive Device (Walker, Cane, Wheelchair, Crutches, etc.)? No PATIENT GENDER DATA: Assigned female at . status: : No status: NO. PATIENT RELEVANT IMPLANT DATA REVIEWED: Not Applicable PATIENT PRESENTS WITH AN IMPLANTABLE OR ATTACHED DIRECTOR OF COLLECTIONS: No RADIOLOGY DEPARTMENT: Ultrasound PERIPHERAL IV DATA: Not applicable SIGNED BY: Merry Smith RDMS April 12, 2025 1:38 PM documented in this encounter [facility] 04-12-2025 Note HNO ID: [id number] Author: MERRY SMITH RDMS Service: ? Author Type: Gastroenterology Nurse Practitioner Type: Progress Notes Filed: 04/12/2025 13:38 Note Text: Radiology Service Progress Note PATIENT NAME: Sonja Beltran DATE OF SERVICE: April 12, 2025 TIME: 1:38 PM PATIENT IDENTITY VERIFICATION COMPLETED USING TWO (2) IDENTIFIERS: Name and Date of confirmed by patient verbally. FALL SCREENING: Has the patient had 2 falls in the last year or 1 fall with injury or currently using an Ambulatory Assistive Device (Walker, Cane, Wheelchair, Crutches, etc.)? No PATIENT GENDER DATA: Assigned female at . status: : No status: NO. PATIENT RELEVANT IMPLANT DATA REVIEWED: Not Applicable PATIENT PRESENTS WITH AN IMPLANTABLE OR ATTACHED DIRECTOR OF COLLECTIONS: No RADIOLOGY DEPARTMENT: Ultrasound PERIPHERAL IV DATA: Not applicable SIGNED BY: Merry Smith RDMS April 12, 2025 1:[address] [facility] 04-12-2025 History of Presen t illness Narrative Radiology Service Progress Note PATIENT NAME: Sonja Beltran DATE OF SERVICE: April 12, 2025 TIME: 9:44 AM PATIENT IDENTITY VERIFICATION COMPLETED USING TWO (2) IDENTIFIERS: Name and Date of confirmed by patient verbally. FALL SCREENING: Has the patient had 2 falls in the last year or 1 fall with injury or currently using an Ambulatory Assistive Device (Walker, Cane, Wheelchair, Crutches, etc.)? No PATIENT GENDER DATA: Assigned female at . status: : No status: NO. PATIENT RELEVANT IMPLANT DATA REVIEWED: Not Applicable PATIENT PRESENTS WITH AN IMPLANTABLE OR ATTACHED DIRECTOR OF COLLECTIONS: No RADIOLOGY DEPARTMENT: Mammography PERIPHERAL IV DATA: Not applicable SIGNED BY: RT Alvaro(Maurice) April 12, 2025 9:44 AM documented in this encounter [facility] 04-12-2025 Note HNO ID: [id number] Author: TISHA AMAYA RT(R) Service: ? Author Type: Technologist Type: Progress Notes Filed: 04/12/2025 09:44 Note Text: Radiology Service Progress Note PATIENT NAME: Sonja Beltran DATE OF SERVICE: April 12, 2025 TIME: 9:44 AM PATIENT IDENTITY VERIFICATION COMPLETED USING TWO (2) IDENTIFIERS: Name and Date of confirmed by patient verbally. FALL SCREENING: Has the patient had 2 falls in the last year or 1 fall with injury or currently using an Ambulatory Assistive Device (Walker, Cane, Wheelchair, Crutches, etc.)? No PATIENT GENDER DATA: Assigned female at . status: : No status: NO. PATIENT RELEVANT IMPLANT DATA REVIEWED: Not Applicable PATIENT PRESENTS WITH AN IMPLANTABLE OR ATTACHED DIRECTOR OF COLLECTIONS: No RADIOLOGY DEPARTMENT: Mammography PERIPHERAL IV DATA: Not applicable SIGNED BY: RT Alvaro(Maurice) April 12, 2025 9:[address] [facility] 03-06-2025 Note HNO ID: [id number] Author: RADHA TAYLOR APRN.BOTTOM BRUSHER Service: ? Author Type: Nurse Practitioner Type: Progress Notes Filed: 03/06/2025 15:36 Note Text: Chief Complaint Patient presents with: Results: Discuss Mammogram HPI Sonja Beltran is a 54 year old female who presents here today for Above Complaints. Patient presents for follow up to mammogram. Past medical history, appointments, medications, allergies reviewed. Previous Medical History No past medical history on file. Previous Surgical History PAST SURGICAL HISTORY Procedure Laterality Date KNEE LEFT OP SURGERY Left LAPS TX ECTOPIC PREG W/SALPINGAND/OOPHORECTOMY Had one fallopian tube Family History FAMILY HISTORY Problem Relation Age of Onset Osteoporosis Mother other (spinal stenosis) Mother Melanoma Father other (enlarged prostate) Father Breast Cancer Sister Macular Degen Maternal Grandmother other (myasthenia gravis) Maternal Grandmother Stroke Maternal Grandfather Breast Cancer Paternal Grandmother Patient Allergies ALLERGIES Allergen Reactions Seasonal Allergies Other: See Comments Current Medications Current Outpatient Medications on File Prior to Visit Medication Sig fluticasone (FLONASE ALLERGY RELIEF) 50 mcg/actuation nasal spray Use 1 [place] in each nostril once daily. No current facility-administered medications on file prior to visit. Social History Social History Tobacco Use Smoking status: Never Smokeless tobacco: Never Substance Use Topics Alcohol use: Yes Comment: once a month Drug use: Never Review of Symptoms REVIEW OF SYSTEMS SEE HPI EXAM: BP 138/90 Pulse 76 Ht 172.7 cm (5' 8) Wt 111.1 kg (245 lb) BMI 37.25 kg/m? General Appearance: Well appearing, alert, in no acute distress, well-hydrated, well nourished. Health Maintenance List Depression Screening Never done Anxiety Screening Never done DTaP,Tdap,Td Vaccine(1 - Tdap) Never done Pneumococcal Vaccine: 50+(1 of 1 - PCV) Never done Covid-19 Vaccine(2023- season) due on 07/17/2024 Cervical Cancer Screening due on 01/12/2026 Mammogram Screening due on 02/24/2026 Colorectal Cancer Screening due on 07/17/2026 Diabetes Screening due on 08/07/2026 Lipid Screening due on 08/07/2028 Influenza Vaccine Completed Shingrix Vaccine Completed Hepatitis B Vaccine Discontinued Hepatitis C Screening Discontinued HIV Screening Discontinued ASSESSMENT/PLAN: 1. Abnormal mammogram - ICD9: 793.80, ICD10: R92.8 (primary diagnosis) - YEE DIAGNOSTIC BILATERAL - US BREAST LTD LEFT 2. Screening for diabetes mellitus - ICD9: V77.1, ICD10: Z13.1 - HEMOGLOBIN A1C 3. Encounter for lipid screening for cardiovascular disease - ICD9: V77.91, V81.2, ICD10: Z13.220, Z13.6 - LIPID PANEL, NONFASTING 4. Wellness examination - ICD9: V70.0, ICD10: Z00.00 - Counseled on healthy diet and regular exercise - Discussed need and benefit for weight loss. BMI 37.25 kg/(m2) - Follow up for annual exam in one year - COMPLETE BLOOD COUNT AND DIFFERENTIAL - COMPREHENSIVE METABOLIC PANEL 5. Large breasts - ICD9: 611.1, ICD10: N62 - CONSULT TO PLASTIC SURGERY Radha Taylor, JIMI.[facility] 03-06-2025 History of Presen t illness Narrative Chief Complaint Patient presents with: Results: Discuss Mammogram HPI Sonja Beltran is a 54 year old female who presents here today for Above Complaints. Patient presents for follow up to mammogram. Past medical history, appointments, medications, allergies reviewed. Previous Medical History No past medical history on file. Previous Surgical History PAST SURGICAL HISTORY Procedure Laterality Date KNEE LEFT OP SURGERY Left LAPS TX ECTOPIC PREG W/SALPING&/OOPHORECTOMY Had one fallopian tube Family History FAMILY HISTORY Problem Relation Age of Onset Osteoporosis Mother other (spinal stenosis) Mother Melanoma Father other (enlarged prostate) Father Breast Cancer Sister Macular Degen Maternal Grandmother other (myasthenia gravis) Maternal Grandmother Stroke Maternal Grandfather Breast Cancer Paternal Grandmother Patient Allergies ALLERGIES Allergen Reactions Seasonal Allergies Other: See Comments Current Medications Current Outpatient Medications on File Prior to Visit Medication Sig fluticasone (FLONASE ALLERGY RELIEF) 50 mcg/actuation nasal spray Use 1 [place] in each nostril once daily. No current facility-administered medications on file prior to visit. Social History Social History Tobacco Use Smoking status: Never Smokeless tobacco: Never Substance Use Topics Alcohol use: Yes Comment: once a month Drug use: Never Review of Symptoms REVIEW OF SYSTEMS SEE HPI EXAM: BP 138/90 Pulse 76 Ht 172.7 cm (5' 8) Wt 111.1 kg (245 lb) BMI 37.25 kg/m General Appearance: Well appearing, alert, in no acute distress, well-hydrated, well nourished. Health Maintenance List Depression Screening Never done Anxiety Screening Never done DTaP,Tdap,Td Vaccine(1 - Tdap) Never done Pneumococcal Vaccine: 50+(1 of 1 - PCV) Never done Covid-19 Vaccine(2023- season) due on 07/17/2024 Cervical Cancer Screening due on 01/12/2026 Mammogram Screening due on 02/24/2026 Colorectal Cancer Screening due on 07/17/2026 Diabetes Screening due on 08/07/2026 Lipid Screening due on 08/07/2028 Influenza Vaccine Completed Shingrix Vaccine Completed Hepatitis B Vaccine Discontinued Hepatitis C Screening Discontinued HIV Screening Discontinued ASSESSMENT/PLAN: 1. Abnormal mammogram - ICD9: 793.80, ICD10: R92.8 (primary diagnosis) - YEE DIAGNOSTIC BILATERAL - US BREAST LTD LEFT 2. Screening for diabetes mellitus - ICD9: V77.1, ICD10: Z13.1 - HEMOGLOBIN A1C 3. Encounter for lipid screening for cardiovascular disease - ICD9: V77.91, V81.2, ICD10: Z13.220, Z13.6 - LIPID PANEL, NONFASTING 4. Wellness examination - ICD9: V70.0, ICD10: Z00.00 - Counseled on healthy diet and regular exercise - Discussed need and benefit for weight loss. BMI 37.25 kg/(m^2) - Follow up for annual exam in one year - COMPLETE BLOOD COUNT AND DIFFERENTIAL - COMPREHENSIVE METABOLIC PANEL 5. Large breasts - ICD9: 611.1, ICD10: N62 - CONSULT TO PLASTIC SURGERY Radha Taylor APRN.WADE documented in this encounter [facility] 03-03-2025 Telephone encount er Note Called and left message on patients voicemail to return call to the office and ask to speak with a FM triage nurse. Julisa Ahumada MA [facility] 03-03-2025 Miscellaneous Notes Formattin g of this note might be different from the original. Called and left message on patients voicemail to return call to the office and ask to speak with a FM triage nurse. Julisa Ahumada MA Called and left message on patients voicemail to return call to the office and ask to speak with a triage nurse. Julisa Ahumada MA Please let patient know her mammogram is inconclusive. I have ordered a diagnostic mammogram. documented in this encounter [facility] 02-28-2025 Telephone encount er Note Called and left message on patients voicemail to return call to the office and ask to speak with a triage nurse. Julisa Ahumada MA [facility] 02-28-2025 Telephone encount er Note Please let patient know her mammogram is inconclusive. I have ordered a diagnostic mammogram. [facility] 02-24-2025 History of Presen t illness Narrative Radiology Service Progress Note PATIENT NAME: Sonja Beltran DATE OF SERVICE: February 24, 2025 TIME: 8:23 AM PATIENT IDENTITY VERIFICATION COMPLETED USING TWO (2) IDENTIFIERS: Name and Date of confirmed by patient verbally. FALL SCREENING: Has the patient had 2 falls in the last year or 1 fall with injury or currently using an Ambulatory Assistive Device (Walker, Cane, Wheelchair, Crutches, etc.)? No PATIENT GENDER DATA: Assigned female at . status: : No status: NO. PATIENT RELEVANT IMPLANT DATA REVIEWED: Not Applicable PATIENT PRESENTS WITH AN IMPLANTABLE OR ATTACHED DIRECTOR OF COLLECTIONS: No RADIOLOGY DEPARTMENT: Mammography PERIPHERAL IV DATA: Not applicable SIGNED BY: RT Alvaro(R) February 24, 2025 8:23 AM documented in this encounter [facility] 02-24-2025 Note HNO ID: [id number] Author: TISHA AMAYA RT(R) Service: ? Author Type: Technologist Type: Progress Notes Filed: 02/24/2025 08:23 Note Text: Radiology Service Progress Note PATIENT NAME: Sonja Beltran DATE OF SERVICE: February 24, 2025 TIME: 8:23 AM PATIENT IDENTITY VERIFICATION COMPLETED USING TWO (2) IDENTIFIERS: Name and Date of confirmed by patient verbally. FALL SCREENING: Has the patient had 2 falls in the last year or 1 fall with injury or currently using an Ambulatory Assistive Device (Walker, Cane, Wheelchair, Crutches, etc.)? No PATIENT GENDER DATA: Assigned female at . status: : No status: NO. PATIENT RELEVANT IMPLANT DATA REVIEWED: Not Applicable PATIENT PRESENTS WITH AN IMPLANTABLE OR ATTACHED DIRECTOR OF COLLECTIONS: No RADIOLOGY DEPARTMENT: Mammography PERIPHERAL IV DATA: Not applicable SIGNED BY: ROSE John) February 24, 2025 8:[address] [facility] 01-03-2025 Note Patient Outreach (FA MPWS) SONJA BELTRAN ([id number]) 1970 F Date Time Provider Department 01/03/25 RADHA TAYLOR During your visit today, we recorded the following information about you: Allergies As of Date: 01/03/2025 Noted Allergy Reaction SEASONAL ALLERGIES 08/07/2023 14 - Other: See Comments Date Reviewed: 08/07/2023 Reviewed by: Jody Manuel MA - Fully Assessed Visit Diagnosis:Encounter for screening mammogram for breast cancer [Z12.31] Order(s):YEE SCREENING W ANUSHKA [[id number]] Order #: [id number] FUTURE Prescriptions as of 02/03/2025 - fluticasone (FLONASE ALLERGY RELIEF) 50 mcg/actuation nasal spray Use 1 [place] in each nostril once daily. Problem List As Of Date: 01/03/2025 (None) Encounter Status:Closed by LEIF CHATMAN on 02/03/25 [facility] 08-07-2023 History of Presen t illness Narrative Chief Complaint Patient presents with: [facility] Sonja Beltran is a 53 year old female who presents here today for Above Complaints.. Patient presents to [facility]. Patient recently moved back to [place] from [place]. Patient reports rash to posterior right leg. Patient reports she has had poison sid for 3 weeks and it is not clearing. Past medical history, appointments, medications, allergies reviewed. Previous Medical History No past medical history on file. Previous Surgical History No past surgical history on file. Family History No family history on file. Patient Allergies ALLERGIES Allergen Reactions Seasonal Allergies Other: See Comments Current Medications Current Outpatient Medications on File Prior to Visit Medication Sig fluticasone (FLONASE ALLERGY RELIEF) 50 mcg/actuation nasal spray Use 1 [place] in each nostril once daily. No current facility-administered medications on file prior to visit. Social History Social History Tobacco Use Smoking status: Never Smokeless tobacco: Never Substance Use Topics Alcohol use: Yes Comment: once a month Drug use: Never Review of Symptoms REVIEW OF SYSTEMS SEE [facility] EXAM: BP 128/72 Pulse 70 Resp 14 Ht 172.7 cm (5' 8) Wt 111.1 kg (245 lb) BMI 37.25 kg/m General Appearance: Well appearing, alert, in no acute distress, well-hydrated, well nourished.. Skin: Dry patchy raised rash to posterior right knee.Skin color, texture, turgor normal. Neck: Supple, no adenopathy; thyroid symmetric, normal size, no bruits. Lungs: Lungs clear to auscultation. No wheezing, rhonchi, rales.. Heart: RRR without murmur, gallop, or rubs. No ectopy. Abdomen: Normal abdominal exam, Abdomen soft, non-tender. Bowel sounds normal. No masses, organomegaly Extremities: No deformities, edema, skin discoloration, clubbing or cyanosis. Good capillary refill. . Peripheral Pulses: Normal. Neurologic: Gait normal. Reflexes normal and symmetric. Sensation grossly intact.. Health Maintenance List Hepatitis B Vaccine(1 of 3 - 3-dose series) Never done Hepatitis C Screening Never done HIV Screening Never done DTaP,Tdap,Td Vaccine(1 - Tdap) Never done Pap Testing Never done HPV Testing Never done Mammogram Screening Never done Lipid Screening Never done Diabetes Screening Never done Colorectal Cancer Screening Never done Shingrix Vaccine(1 of 2) Never done Covid-19 Vaccine(2 - Moderna series) due on 05/09/2022 Depression Assessment Never done Influenza Vaccine(1) due on 07/17/2023 ASSESSMENT/PLAN: 1. Wellness examination - ICD9: V70.0, ICD10: Z00.00 (primary diagnosis) - Counseled on healthy diet and regular exercise - Calcium intake with supplements or by diet of 1000 mg/day for under 50, 0895-1722 mg/day for 50+ - Discussed need and benefit for weight loss. BMI 37.25 kg/(m^2) - Mammogram ordered - exam recommended once yearly - Depression screening tool completed and reviewed with patient. Based on score and interview, patient is not at risk for depression and recommended no further intervention at this time. - Follow up for annual exam in one year - CBC + DIFF - COMP METABOLIC PANEL 2. Screening for diabetes mellitus - ICD9: V77.1, ICD10: Z13.1 - HGB A1C 3. Encounter for lipid screening for cardiovascular disease - ICD9: V77.91, V81.2, ICD10: Z13.220, Z13.6 - LIPID PANEL, NONFASTING Radha Taylor APRN.BOTTOM BRUSHER documented in this encounter [facility] Evaluation note Diagnosis Wellness examination- Primary Screening for diabetes mellitus Screening for lipid disorders Encounter for lipid screening for cardiovascular disease Screening for lipoid disorders Encounter for screening mammogram for breast cancer Poison sid dermatitis Contact dermatitis and other eczema due to plants (except food) Encounter for immunization Need for other specified prophylactic vaccination against single bacterial disease [facility] Encounter for screening mammogram for breast cancer [facility] Diagnosis Abnormal mammogram- Primary Abnormal mammogram, unspecified Screening for diabetes mellitus Encounter for lipid screening for cardiovascular disease Screening for lipoid disorders Wellness examination Large breasts Hypertrophy of breast [facility] Diagnosis Abnormal mammogram Abnormal mammogram, unspecified documented in this encounter [facility] note* Diagnosis Abnormal mammogram Abnormal mammogram, unspecified documented in this encounter [facility] note* Diagnosis Abnormal mammogram- Primary Abnormal mammogram, unspecified Abnormal mammogram Abnormal mammogram, unspecified documented in this encounter [facility] note* Diagnosis Abnormal mammogram- Primary Abnormal mammogram, unspecified documented in this encounter [facility] note* Diagnosis Abnormal mammogram- Primary Abnormal mammogram, unspecified [facility]* Diagnosis Abnormal mammogram Abnormal mammogram, unspecified documented in this encounter [facility] for referral (narrative)* Diagnostic Procedure Only (Routine) - Authorized Specialty Diagnoses / Procedures Referred By Felipe mohamud Referred To Contact [facility] Diagnoses Encounter for screening mammogram for breast cancer Procedures YEE SCREENING SCREENING MAMMOGRAPHY BI 2-VIEW BREAST INC Radha Sims APRN.CNP [address] [place] [address] [facility] [address] [place] [address] Referral ID Status Reason Start Date Expiration Date Visits Requested Visits Authorized [id number] Authorized Auto-Generat ed Referral 08/07/2023 09/05/2024 1 1 [facility] for visit Narrative* Diagnostic Procedure Only (Routine) - Closed Specialty Diagnoses / Procedures Referred By Felipe mohamud Referred To Contact [facility] Diagnoses Encounter for screening mammogram for breast cancer Procedures YEE SCREENING W ANUSHKA SCREENING DIGITAL BREAST TOMOSYNTHESIS BI SCREENING MAMMOGRAPHY BI 2-VIEW BREAST INC Radha Sims APRN.CNP [facility] [place] [address] Phone: tel: fax: [facility] [address] [place] [address] Referral ID Status Reason Start Date Expiration Date V isits Requested Visits Authorized [id number] Closed Auto-Generate d Referral 01/03/2025 02/02/2026 1 1 [facility] for visit Narrative* Diagnostic Procedure Only (Routine) - Closed Specialty Diagnoses / Procedures Referred By Contac t Referred To Contact [facility] Diagnoses Abnormal mammogram Procedures YEE DIAGNOSTIC BILATERAL DIAGNOSTIC MAMMOGRAPHY COMPUTER-AIDED DETCJ Radha Espinoza APRN.BOTTOM BRUSHER [address] [place] [address] Phone: tel: fax: [facility] [address] [place] [address] Referral ID Status Reason Start Date Expiration Date V isits Requested Visits Authorized [id number] Closed Auto-Generate d Referral 03/06/2025 04/05/2026 1 1 [facility] for visit Narrative* Diagnostic Procedure Only (Routine) - Closed Specialty Diagnoses / Procedures Referred By Felipe mohamud Referred To Contact [facility] Diagnoses Abnormal mammogram Procedures US BIOPSY BREAST RIGHT BX BREAST W/DEVICE 1ST LESION ULTRASOUND GUID Kevin Salazar MD [address] [place] [address] Phone: tel: fax: [facility] [address] [place] [phone] Referral ID Status Reason Start Date Expiration Date V isits Requested Visits Authorized [id number] Closed Auto-Generate d Referral 05/02/2025 06/01/2026 1 1 [facility] Summary Purpose Family History No Family History Records FoundNo Family History Records Found Advance Directives No Advanced Directives Records FoundNo Advanced Directives Records Found Additional Source Comments Source Comments (unrecognize d section and content) In the event this informatio n is protected by the Federal Confidentiality of Alcohol and Drug Abuse Patient Records regulations: The Federal rules restrict any use of the information to criminally investigate or prosecute any alcohol or drug abuse patient.[facility] event this information is protected by the Federal Confidentiality of Alcohol and Drug Abuse Patient Records regulations: The Federal rules restrict any use of the information to criminally investigate or prosecute any alcohol or drug abuse patient.[facility] the event this information is protected by the Federal Confidentiality of Alcohol and Drug Abuse Patient Records regulations: The Federal rules restrict any use of the information to criminally investigate or prosecute any alcohol or drug abuse patient.[facility] the event this information is protected by the Federal Confidentiality of Alcohol and Drug Abuse Patient Records regulations: The Federal rules restrict any use of the information to criminally investigate or prosecute any alcohol or drug abuse patient.[facility] the event this information is protected by the Federal Confidentiality of Alcohol and Drug Abuse Patient Records regulations: The Federal rules restrict any use of the information to criminally investigate or prosecute any alcohol or drug abuse patient.[facility] the event this information is protected by the Federal Confidentiality of Alcohol and Drug Abuse Patient Records regulations: The Federal rules restrict any use of the information to criminally investigate or prosecute any alcohol or drug abuse patient.[facility] the event this information is protected by the Federal Confidentiality of Alcohol and Drug Abuse Patient Records regulations: The Federal rules restrict any use of the information to criminally investigate or prosecute any alcohol or drug abuse patient.[facility] the event this information is protected by the Federal Confidentiality of Alcohol and Drug Abuse Patient Records regulations: The Federal rules restrict any use of the information to criminally investigate or prosecute any alcohol or drug abuse patient.[facility] the event this information is protected by the Federal Confidentiality of Alcohol and Drug Abuse Patient Records regulations: The Federal rules restrict any use of the information to criminally investigate or prosecute any alcohol or drug abuse patient.[facility] the event this information is protected by the Federal Confidentiality of Alcohol and Drug Abuse Patient Records regulations: The Federal rules restrict any use of the information to criminally investigate or prosecute any alcohol or drug abuse patient.[facility] the event this information is protected by the Federal Confidentiality of Alcohol and Drug Abuse Patient Records regulations: The Federal rules restrict any use of the information to criminally investigate or prosecute any alcohol or drug abuse patient.[facility] Reason for Visit (unrecogniz ed section and content) Reason Comments Establish Care Reason Comments Results Discuss Mammogram Reason Comments Radiology US Specialty Diagnoses / Procedures Referred By Contac t Referred To Contact [facility] Diagnoses Abnormal mammogram Procedures US BREAST LTD LEFT US BREAST UNI REAL TIME WITH IMAGE LIMITED Radha Taylor APRN.CNP [address] [place] [address] Phone: tel: fax: [facility] [address] [place] [address] Referral ID Status Reason Start Date Expiration Date V isits Requested Visits Authorized [id number] Closed Auto-Generate d Referral 03/06/2025 04/05/2026 1 1 Reason Onset Date Comments Results 02/28/2025 Reason Comments Consult Reason Comments Results Care Teams (unrecognized sec tion and content) Chemical Engineering Professor Relationship Specialty Start Date End Date Radha Taylor APRN.CNP [address] [place] [phone] PCP - General Family Medicine 08/07/23 Chemical Engineering Professor Relationship Specialty Start Date End Date Radha Taylor APRN.BOTTOM BRUSHER [address] [place] [phone] PCP - General Family Medicine 08/07/23 Chemical Engineering Professor Relationship Specialty Start Date End Date Radha Taylor APRN.BOTTOM BRUSHER [address] [place] [phone] PCP - General Family Medicine 08/07/23 Chemical Engineering Professor Relationship Specialty Start Date End Date Radha Taylor APRN.BOTTOM BRUSHER [address] [place] [phone] PCP - General Family Medicine 08/07/23 Chemical Engineering Professor Relationship Specialty Start Date End Date Radha Taylor GASOLINE PUMP MECHANIC.BOTTOM BRUSHER [address] [place] [phone] PCP - General Family Medicine 08/07/23 Chemical Engineering Professor Relationship Specialty Start Date End Date Radha Taylor GASOLINE PUMP MECHANIC.BOTTOM BRUSHER [address] [place] [phone] PCP - General Family Medicine 08/07/23 Chemical Engineering Professor Relationship Specialty Start Date End Date Radha Taylor, GASOLINE PUMP MECHANIC.BOTTOM BRUSHER [address] [place] [id number] PCP - General Family Medicine 08/07/23 Chemical Engineering Professor Relationship Specialty Start Date End Date Radha Taylor APRN.BOTTOM BRUSHER [address] [place] [phone] PCP - General Family Medicine 08/07/23 Chemical Engineering Professor Relationship Specialty Start Date End Date Radha Taylor APRN.BOTTOM BRUSHER [address] [place], [place] [phone] PCP - General Family Medicine 08/07/23 Chemical Engineering Professor Relationship Specialty Start Date End Date Radha Taylor APRN.BOTTOM BRUSHER [address] [place], [place] [phone] PCP - General Family Medicine 08/07/23 INFORMATION SOURCE (unrecogn ized section and content) DATE CREATED AUTHOR 03/09/2025 [facility] DATE CREATED AUTHOR AUTHOR'S LAINE JOINER 05/16/2025 [facility] FOR RECORDS PERTAINING TO PATIENTS WHO ARE OR HAVE BEEN ENROLLED IN A CHEMICAL DEPENDENCY/SUBSTANCEABUSE PROGRAM, SOME INFORMATION MAY BE OMITTED. This clinical summary was aggregated from multiple sources. Caution should be exercised in using it in the provision of clinical care. This summary normalizes information from multiple sources, and as a consequence, information in this document may materially change the coding, format and clinical context of patient data. In addition, data may be omitted in some cases. CLINICAL DECISIONS SHOULD BE BASED ON THE PRIMARY CLINICAL RECORDS. [employer] provides no warranty or guarantee of the accuracy or completeness of information in this document.
[2025-05-25 10:30] LABS: Hematocrit 43.8 % (37-47); Hemoglobin 14.8 g/dL (12.0-15.0); Immature Granulocytes Count 0.020 X10^3/uL (0.0-0.0); Mean Corp Hgb Conc 33.8 g/dL (32-36); Mean Corpuscular Volume 90.1 fL (81-99); Mean Platelet Vol. 9.7 fl (6.2-12.0); NRBC Flagged by Analyzer 0 % (0-5); Platelet Count 308 K/mm3 (150-450); RBC Distribution Width CV 13.3 % (11.6-14.6); RBC Distribution Width SD 43.8 fl (35.1-43.9); Red Blood Count 4.86 M/mm3 (4.2-5.4); White Blood Count 6.2 K/mm3 (4.4-11.0)
[2025-05-25 11:25] LABS: AST(SGOT) 20 U/L (<=31); Alanine Aminotransfer ALT/SGPT 24 U/L (<=34); Albumin, Serum 4.4 g/dL (3.5-5.0); Alkaline Phosphatase 82 U/L (35-104); Anion Gap 10 (5-15); BUN 14 mg/dL (4-19); BUN/Creat Ratio 14.9 RATIO (10-20); Calcium,Total 9.2 mg/dL (7.6-11.0); Carbon Dioxide 26.0 mmol/L (21.0-32.0); Chloride 106 mmol/L (98-108); Cholesterol 201 mg/dL (<=200); Globulin 2.6 g/dL (2.2-4.2); Glucose 85 mg/dL (70-99); Low Density Lipoprotein Calc. 121 mg/dL; Potassium 4.2 mmol/L (3.3-5.1); Triglycerides 147 mg/dL; Very Low Density Lipoprotein 29 mg/dL (5-40); cholesterol:hdl ratio screen 3.97
== END | disposition home or self-care (01) ==
LOC: MTLAB 07:15
PROVIDERS: PCP Nurse Practitioner Family; Referring Provider Nurse Practitioner Family; Visit Provider Nurse Practitioner Family
DX: Z00.00 Encounter for general adult medical examination without abnormal findings (principal); Z13.220 Encounter for screening for lipoid disorders; Z13.6 Encounter for screening for cardiovascular disorders; Z13.1 Encounter for screening for diabetes mellitus
CPT/HCPCS: 36415; 80053; 80061; 83036; 85025